=== PATIENT | male | born 1985 | race Caucasian/White ===

== ENCOUNTER 2023-07-09 14:04 | Outpatient (AMB) | payer OTHER, SELFPAY ==
[2023-07-09 14:06] VITALS: BP 130/70; PULSE 71; O2SAT 98; BMI 31.7
--- NOTE | 2023-07-09 14:06 | A.OFFPC_ITS ---
Vital Signs 07/09/23 14:06 Height 5 ft 9 in Weight 215 lb BMI 31.7 BP 130/70 Blood Pressure Location Lt brachial Pulse 71 Pulse Source Pulse Oximeter Pulse Oximetry (%) 98 Oxygen Delivery Method Room Air Intake Visit Reasons: CPE Intake Note: Patient is here for a physical. Allergies No Known Allergies [No Known Allergies*] Allergy (Verified 07/09/23 14:09) Tobacco use date assessed: 07/09/23 Dental Screening Dental Screen Date: 07/09/23 Did you have a dental visit in the last 12 months?: No Did you have a dental problem in the last 6 months where you did not have access to dental care?: No Was dental information given to patient?: Patient declined HPI CPE HPI Details 38 y/o male presents for a CPE with f/u labs and health maintenance. No recent labs to review. Blood pressure today 130/70. He reports he has not been taking any blood pressure meds. He had been concerned lisinopril had been affecting his testosterone levels so had switched this to hydrochlorothiazide but he has not trialed HCTZ yet. Pt reports some chest pain/discomfort - focal L upper chest. Pt reports pain lasts a few minutes to an hour. HPI Comments History of Present Illness Details Documentation assistance for Deric Park MD, was provided by Fish Ferrell, Slots Manager on 07/09/2023 2:34 PM BERTIN. I, Dr. Park, have read, observed, and verified documentation. [facility] Medical History (Updated 07/09/23 @ 14:35 by Fish Ferrell) History of drug abuse Family History (Updated 07/09/23 @ 14:14 by Yuliana Lyons [facility]) Mother Substance abuse Mental health disorder Father Substance abuse Maternal Grandmother Substance abuse Brother Substance abuse Mental health disorder Social History Housing: House Patient Tobacco Use Status: Never used Tobacco e-Cigarette/Vaping Use: Never Used service: No Current occupational status: employed Current occupational exposures/hazards: No Cognitive needs: No Hearing needs: No Vision needs: No Questionnaire PHQ-9 Over the last 2 weeks, how often have you been bothered by any of the following problems? 1. Little interest or pleasure in doing things: not at all 2. Feeling down, depressed, or hopeless: not at all 3. Trouble falling or staying asleep, or sleeping too much: not at all 4. Feeling tired or having little energy: not at all 5. Poor appetite or overeating: not at all 6. Feeling bad about yourself - or that you are a failure or have let yourself or your family down: not at all 7. Trouble concentrating on things, such as reading the newspaper or watching television: not at all 8. Moving or speaking so slowly that other people could have noticed. Or the opposite - being so fidgety or restless that you have been moving around a lot more than usual: not at all 9. Thoughts that you would be better off or of hurting yourself in some way: not at all Total score: 0 Depression Screening Interpretation: Negative Depression Screening Done: Yes 13332 - PHQ-9 Billing: Yes Source: Developed by Drs. Homero Shepard, Rosaura Hernandez, Edilberto Shane and colleagues, with an educational josephine from [employer]™. Thrive Questionnaire Date Thrive assessed: 07/09/23 I am a: Patient What is your living situation today?: I have a steady place to live Within the past 12 months, did the food you bought not last and you didn't have the money to get more?: Never true Within the past 12 months, did you worry whether your food would run out before you got money to buy more?: Never true Do you have trouble paying for medicines?: No Do you have trouble getting transportation to medical appointments?: No Do you have trouble paying your heating and electricity bill?: No Do you have trouble taking care of your child, family member or friend?: No Do you have trouble with day-to-day activities such as bathing, preparing meals, shopping, managing finances, etc.?: No Are you currently unemployed and looking for a job?: No Are you interested in more education?: No THRIVE Score: 0 AUDIT C Alcohol Use Questionnaire (AUDIT-C) 1. How often do you have a drink containing alcohol?: Never 3. How often do you have six or more drinks on one occasion?: Never Total Score: 0 ALLIE-7 AMB Questionnaire ALLIE-7 Date ALLIE - 7 assessed: 07/09/23 Feeling nervous, anxious, or on edge: 0 = Not at all Not being able to stop or control worryin = Not at all Worrying too much about different things: 0 = Not at all Trouble relaxin = Not at all Being so restless that it is hard to sit still: 0 = Not at all Becoming easily annoyed or irritable: 0 = Not at all Feeling afraid as if something awful might happen: 0 = Not at all Total ALLIE-7 score (0-4 normal; 5-9 mild; 10-14 moderate; 15-21 severe): 0 Source: Developed by Drs. Homero Shepard, Rosaura Hernandez, Edilberto Shane and colleagues, with an educational josephine from [employer]™. ALLIE-7 Assessment Billing ALLIE-7 Assessment Tool: ALLIE-7 Assessment 75130 Review of Systems Const Denies chills, Denies fatigue, Denies fever(s), Denies headache(s) and Denies weakness Eyes Denies change in vision ENT Denies dizziness, Denies headache(s), Denies hearing loss, Denies nasal congestion, Denies sinus pain, Denies sinus pressure and Denies sore throat Card Reports chest pain, Denies lightheadedness, Denies dyspnea and Denies other (palpitations) Resp Denies cough, Denies dyspnea and Denies wheezing GI Denies abdominal pain, Denies melena, Denies hematochezia, Denies change in bowel habits, Denies dyspepsia and Denies nausea Denies hematuria and Denies dysuria Musc Denies abnormal gait, Denies myalgias, Denies arthralgias, Denies numbness and Denies tingling Skin/Breast Denies rash, Denies unusual bruising and Denies wounds Neuro Denies abnormal gait, Denies dizziness, Denies headache(s), Denies memory loss, Denies numbness, Denies Sensory deficit (Neuro), Denies tingling and Denies weakness Psych Denies anxiety, Denies depression and Denies memory loss Endo Denies cold intolerance, Denies fatigue, Denies heat intolerance, Denies polydipsia and Denies polyuria Juan Francisco/Lymph Denies easy bleeding and Denies easy bruising Aller/Immun Denies wheezing Physical exam (Primary Care) Vital Signs: Last Vital Signs Pulse 71 07/09/23 14:06 BP 130/70 07/09/23 14:06 Pulse Ox 98 07/09/23 14:06 Oxygen Delivery Method Room Air 07/09/23 14:06 BMI result Body Mass Index 31.7 Tobacco/Smoking Status: Tobacco use Status Tobacco use date assessed 07/09/23 07/09/23 14:20 Patient Tobacco Use Status Never used Tobacco 07/09/23 14:20 e-Cigarette/Vaping Use Never Used 07/09/23 14:20 PHQ-9: PHQ-9 Score PHQ-9: Total score 0 07/09/23 14:22 Depression Screening Interpretation: Negative Thrive Assessment: Date of Thrive Assessment Date Thrive assessed 07/09/23 07/09/23 14:20 Const General: no acute distress, well developed, alert and awake Nutritional Appearance: well nourished Orientation/consciousness: patient oriented x3 HENMT Head: Yes normocephalic and Yes atraumatic Ears: hearing grossly normal bilaterally and TM's normal bilaterally General nose exam: Normal external nose present and Normal nares present Mouth: Normal oral and palatal mucosa present and moist mucous membranes Teeth and gingiva: dentition normal Throat: Yes posterior oropharynx normal Eyes General: appearance normal, both eyes and all related structures Pupils: Equal, round and reactive pupils present and Pupil accommodation reflex normal EOM: EOMs intact bilaterally Neck Neck: Yes normal visual inspection, Yes no lymphadenopathy and Yes trachea midline Thyroid: Thyroid normal Carotids: no bruits Lymphatic: no lymphadenopathy noted Chest Chest palpation & inspection: normal inspection of the chest Resp Effort & Inspection: normal respiratory effort Auscultation: clear to auscultation bilaterally Cardio Rate: regular rate Rhythm: regular rhythm Heart sounds: S1 normal heart sound present, S2 normal heart sound present, no gallops, no murmurs and no rubs Bruits: no abdominal aortic bruits and no carotid bruits GI Palpation (GI): No Abdominal aortic bruit present, Soft to palpation, nontender, No hepatosplenomegaly present and No Rebound tenderness present Auscultation: normal bowel sounds General: Yes no CVA tenderness Back/Spine/Pelvis Back: no CVA tenderness Cervical Spine: cervical ROM normal and No Cervical spine tenderness Thoracic/Lumbar Spine: thoraco-lumbar ROM normal, No pain with thoraco-lumbar ROM, No thoracic spinal tenderness and No lumbar spinal tenderness Skin Lesions: no lesions Rashes: no rashes Trauma: no lacerations or abrasions Wounds: no wounds Nails: normal Neuro General: patient oriented x3 Cranial nerves: Yes Equal, round and reactive pupils present Cognition (Neuro): normal cognition Gait exam (Neuro): Normal gait present Motor exam (neuro): 5/5 motor strength present throughout Sensory Exam: No Sensory deficit (Neuro) Deep tendon reflexes (DTR's): Right patellar reflex intensity grade: 2+ and Left patellar reflex intensity grade: 2+ Extrem General: Yes normal to inspection and No edema Psych Appearance: grossly normal Affect: normal affect Attitude: cooperative Thought process: Normal thought process present Assessment and Plan Assessment & Plan (1) Adult general medical exam: Code(s): Z00.00 - Encounter for general adult medical examination without abnormal findings Plan: 38-year-old?male?presents?for?complete?physical?exam Encouraged?healthy?diet?with?active?lifestyle?and?plenty?of?exercise (2) Chest pain: Code(s): R07.9 - Chest pain, unspecified Plan: 38-year-old?male?with?history?of?hypertension?has?complaint?of?focal?left?upper? chest?pain. Last?a?few?minutes?to?an?hour. EKG: ?Normal?sinus?rhythm,?normal?axis,?normal?intervals,?no?hypertrophy,?no?ST-T-wav e?changes. No?evidence?of?cardiac?disease. This?is?likely?chest?wall?pain. Can?use?gentle?stretching?of?pectoralis?muscles Will?check?chest?x-ray (3) Hypertension: Code(s): I10 - Essential (primary) hypertension Plan: Patient?has?not?been?taking?any?blood?pressure?medication?and?his?blood?pressure ?is?130/70 Encouraged?lifestyle?changes He?will?keep?a?log?of?his?blood?pressures?at?home Will?follow- up?at?next?office?visit?and?if?blood?pressures?are?elevated?in?hypertensive?rang e, can?resume?antihypertensive?medication (4) Screening for prostate cancer: Code(s): Z12.5 - Encounter for screening for malignant neoplasm of prostate Plan: Check?PSA Orders: Orders Comprehensive [place]. Panel Fast Today Z00.00 - Encounter for general adult medical examination without abnormal findings Lipid Panel Today Z00.00 - Encounter for general adult medical examination without abnormal findings Microalbumin, Random (w Creat) Today I10 - Essential (primary) hypertension TSH reflex Free T4 Today Z00.00 - Encounter for general adult medical examination without abnormal findings XR chest 2V Today R07.9 - Chest pain, unspecified Prostate Specific Antigen Scr Today Z12.5 - Encounter for screening for malignant neoplasm of prostate UA and rflx microscopic Today Z00.00 - Encounter for general adult medical examination without abnormal findings AMB EKG-In Office Today R07.9 - Chest pain, unspecified Complete Blood Count Auto Diff Today R07.9 - Chest pain, unspecified, Z00.00 - Encounter for general adult medical examination without abnormal findings Medications: Discontinued hydrochlorothiazide Discontinued Reason: Doctor's Order 50 mg PO QAM 30 days 30 tabs 1RF Coding Level of Care Code Est Pt Level 3 (96185) Est Pt Prev Care 40-64y(05372) Diagnoses Adult general medical exam Z00.00 Chest pain R07.9 Hypertension I10 Screening for prostate cancer Z12.5 Additional Codes ALLIE-7 Assessment Billing - ALLIE-7 Assessment Tool: ALLIE-7 Assessment 90107 ([id number])
== END 2023-07-09 14:54 | disposition home or self-care (01) ==
PROVIDERS: PCP Family Medicine; Visit Provider Family Medicine
DX: Z00.00 Encounter for general adult medical examination without abnormal findings (principal); R07.9 Chest pain, unspecified; I10 Essential (primary) hypertension; Z12.5 Encounter for screening for malignant neoplasm of prostate
CPT/HCPCS: 93000; 99213; 99396

== ENCOUNTER 2023-07-26 08:01 | Outpatient (REF) | payer OTHER, SELFPAY ==
[2023-07-26 11:40] LABS: MANUAL DIFF FLAG NO
[2023-07-26 11:40] LABS: Appearance Urine Clear; Color Urine Yellow; Glucose Urine UA Negative (Negative); Leukocyte Esterase Urine Negative (Negative); Nitrite Urine Negative (Negative); Specific Gravity - Urine 1.015 (1.005-1.025); Urine Blood Negative (Negative); Urine Ketones Negative (Negative); Urine Protein Negative (Neg-Trace)
[2023-07-26 11:46] LABS: Basophils Percent Auto 0.2 % (0-2); Eosinophils Absolute Auto 0.2 X10*3/uL (0.0-0.4); Hematocrit 48.6 % (42.0-52.0); Imm Gran Abs Auto 0.01 X10*3/uL (0.00-0.03); Imm Gran Pct Auto 0.2 % (0.0-0.4); Lymphocytes Absolute Auto 2.5 X10*3/uL (1.2-4.9); Lymphocytes Percent Auto 42.1 % (20-40); Mean Corpuscular HGB Conc 32.9 g/dl (31.0-36.0); Mean Corpuscular Hemoglobin 29.3 pg (27.0-33.0); Mean Platelet Volume 10.6 fL (9.4-12.4); Monocytes Absolute Auto 0.5 X10*3/uL (0.1-1.2); Monocytes Percent Auto 8.3 % (2-11); Neutrophils Absolute Auto 2.8 x10*3/uL (2.0-8.3); Neutrophils Percent Auto 46.2 % (45-73); Platelet Count 300 X10*3/uL (160-400); Red Blood Count 5.46 X10*6/uL (4.60-5.80); Red Cell Distribution Width 13.2 % (11.0-16.0)
[2023-07-26 12:18] LABS: Creatinine Urine 54.57 mg/dL; Microalbumin Urine < 5.0 mg/L
[2023-07-26 12:44] LABS: Prostate Specific Antigen Scr 1.17 ng/mL (<0.05-4.0)
[2023-07-26 12:47] LABS: Alanine Aminotransferase 58 U/L (0-40); Albumin Level 4.9 g/dL (3.5-5.0); Alkaline Phosphatase 106 U/L (39-117); Anion Gap 13 (12-20); Aspartate Amino Transferase 37 U/L (5-37); Bilirubin Total 0.4 mg/dL (0.0-1.0); Blood Urea Nitrogen 16 mg/dL (9-16); Calcium 10.2 mg/dL (8.4-10.2); Carbon Dioxide 28 mmol/L (22-29); Chloride 102 mmol/L (96-108); Cholesterol 209 mg/dL (<200); Estimated Glomerular Filt Rate > 60; Glucose Fasting 83 mg/dL (60-99); HDL Cholesterol 56 mg/dL (>40); LDL Cholesterol Calculated 139 mg/dL (<100); Potassium 4.2 mmol/L (3.3-5.1); Sodium 139 mmol/L (135-145); TSH reflex Free T4 4.53 uIU/mL (0.32-4.0); Total Protein 8.7 g/dL (6.5-8.0); Triglycerides 71 mg/dL (<150)
[2023-07-26 13:17] LABS: Free T4 (Free Thyroxine) 0.97 ng/dL (0.71-1.85)
== END 2023-07-26 08:02 | disposition home or self-care (01) ==
LOC: HO.WFDLDS 08:01
PROVIDERS: Visit Provider Family Medicine
DX: Z00.00 Encounter for general adult medical examination without abnormal findings (principal); Z12.5 Encounter for screening for malignant neoplasm of prostate; R07.9 Chest pain, unspecified; I10 Essential (primary) hypertension
CPT/HCPCS: 36415; 80053; 80061; 81003; 82043; 82570; 84153; 84439; 84443; 85025

== ENCOUNTER → 2023-07-31 14:54 | Outpatient (AMB) | payer OTHER, SELFPAY ==
--- NOTE | 2023-07-31 14:47 | A.OFFPC_ITS ---
Intake Visit Reasons: F/U Labs Intake Note: Patient is scheduled today to follow up on labs. Allergies No Known Allergies [No Known Allergies*] Allergy (Verified 07/31/23 14:47) Tobacco use date assessed: 07/31/23 Dental Screening Dental Screen Date: 07/09/23 HPI F/U Labs HPI Details 38 y/o male presents to review labs and chest x-ray due to chest wall pain. Labs were drawn 07/26/23. Reviewed labs with pt. Elevated ALT of 58. TC 209. LDL 139. HDL 56. Elevated TSH of 4.53. No chest x-ray yet. Pt notes pain is no longer bothering him. PFS Medical History History of drug abuse Family History Mother Substance abuse Mental health disorder Father Substance abuse Maternal Grandmother Substance abuse Brother Substance abuse Mental health disorder Social History Housing: House Patient Tobacco Use Status: Never used Tobacco e-Cigarette/Vaping Use: Never Used service: No Current occupational status: employed Current occupational exposures/hazards: No Cognitive needs: No Hearing needs: No Vision needs: No Questionnaire Thrive Questionnaire Date Thrive assessed: 07/09/23 ALLIE-7 AMB Questionnaire ALLIE-7 Date ALLIE - 7 assessed: 07/09/23 Source: Developed by Drs. Homero Shepard, Rosaura Hernandez, Edilberto Shane and colleagues, with an educational josephine from [employer]. Review of Systems Const Denies chills, Denies fatigue, Denies fever(s), Denies headache(s) and Denies weakness ENT Denies dizziness and Denies headache(s) Card Denies dyspnea Resp Denies cough, Denies dyspnea, Denies wheezing and Denies other (shortness of breath) Musc Denies numbness and Denies tingling Neuro Denies dizziness, Denies headache(s), Denies numbness, Denies tingling and Denies weakness Psych Denies anxiety and Denies depression Endo Denies fatigue Aller/Immun Denies wheezing Physical exam (Primary Care) Tobacco/Smoking Status: Tobacco use Status Tobacco use date assessed 07/31/23 07/31/23 14:49 Patient Tobacco Use Status Never used Tobacco 07/31/23 14:49 e-Cigarette/Vaping Use Never Used 07/31/23 14:49 Thrive Assessment: Date of Thrive Assessment Date Thrive assessed 07/09/23 07/31/23 14:49 Telehealth Telehealth Telehealth Platform: Telephone Location of provider rendering services: practice address Location of patient: address on file Patient Identification confirmed using: Name, : Yes Telehealth method: voice only Patient verbally consented to treatment: Yes Patient verbally consented to billing insurance company: Yes Patient informed of any privacy concerns related to visit: Yes Assessment and Plan Assessment & Plan (1) Chest pain: Code(s): R07.9 - Chest pain, unspecified Plan: Focal?upper?left?chest?wall?pain This?resolved.??Patient?did?not?get?chest?x-ray He?will?let?me?know?if?pain?returns (2) Elevated liver enzymes: Code(s): R74.8 - Abnormal levels of other serum enzymes Plan: History?of?elevated Liver?enzymes. Patient?also?has?a?history?of?alcohol?abuse?though?he?is?abstinent?now Also?overweight?and?has?use?frequent?Tylenol Advised?him?to?work?on?some?weight?loss?and?good?hydration.??Avoid?alcohol?or?Ty lenol Will?get?an?ultrasound?of?his?liver Will?repeat?liver?enzymes?prior?to?his?next?visit (3) Hypercholesterolemia: Code(s): E78.00 - Pure hypercholesterolemia, unspecified Plan: Mildly?elevated?LDL?cholesterol Patient?work?on?a?diet?lower?in?saturated?fats?and?cholesterol?and?weight?loss Recheck?prior?to?next?visit (4) Elevated TSH: Code(s): R79.89 - Other specified abnormal findings of blood chemistry Plan: Mildly?elevated?TSH Patient?had?had?a?severe?oral?infection Recheck?thyroid?hormone?level Plan Also?some?complaints?of?fatigue?and?I?ordered?a?testosterone?level?at?patient's? request Orders: Orders Testosterone, Free/Total Today R53.83 - Other fatigue Thyroid Stimulating Hormone Today E03.9 - Hypothyroidism, unspecified, R79.89 - Other specified abnormal findings of blood chemistry Triiodothyronine T3 Total Today E03.9 - Hypothyroidism, unspecified, R79.89 - Other specified abnormal findings of blood chemistry US abdomen smallwood w elastography Today R74.8 - Abnormal levels of other serum enzymes Free T4 (Free Thyroxine) Today E03.9 - Hypothyroidism, unspecified, R79.89 - Other specified abnormal findings of blood chemistry Lipid Panel Today E78.00 - Pure hypercholesterolemia, unspecified, Z00.00 - Encounter for general adult medical examination without abnormal findings Comprehensive [place]. Panel Fast Today R74.8 - Abnormal levels of other serum enzymes, Z00.00 - Encounter for general adult medical examination without abnormal findings Coding Level of Care Code Tele Est Pt Level 2 (43816) Diagnoses Chest pain R07.9 Elevated liver enzymes R74.8 Hypercholesterolemia E78.00 Elevated TSH R79.89
== END ==
LOC: HO.HMGFM 14:54
PROVIDERS: PCP Family Medicine; Visit Provider Family Medicine
DX: R74.8 Abnormal levels of other serum enzymes (principal); E78.00 Pure hypercholesterolemia, unspecified; R79.89 Other specified abnormal findings of blood chemistry
CPT/HCPCS: 99212

== ENCOUNTER 2023-08-15 09:22 | Outpatient (REF) | payer OTHER, SELFPAY ==
--- NOTE | ~2023-08-15 | US_ITS ---
EXAMINATION: US ABDOMEN LIMITED WITH LIVER ELASTOGRAPHY CLINICAL INFORMATION: Abnormal serum enzymes. COMPARISON: None available. TECHNIQUE: Real-time imaging of the abdominal viscera. Noninvasive ultrasound liver fibrosis assessment is performed using Mary ElastPQ point quantification shear wave elastography (2D-SWE) with a C5-2 MHz transducer. Multiple elastography samples are obtained. FINDINGS: PANCREAS: Largely obscured by overlapping bowel gas. LIVER: The liver is borderline enlarged and shows normal contour and increased echogenicity. No focal lesion or intrahepatic biliary duct dilatation. The right lobe measures 17.0 cm in length. The left lobe measures 10.0 cm in length. Portal flow is towards the liver (hepatopetal). Shear wave liver elastography median stiffness is 1.69 m/s (reference: normal median stiffness is 1.3 m/s or less). IQR/median stiffness to assess sampling precision is 0.15 (reference: good quality data set is IQR/median stiffness of 0.15 or less). GALLBLADDER: Normal. The gallbladder is physiologically distended without evidence of stones, sludge, polyps, wall thickening or pericholecystic fluid. COMMON BILE DUCT: Normal in caliber measuring 0.2 cm in diameter. RIGHT KIDNEY: Normal. No hydronephrosis. No renal calculi or focal parenchymal lesions. The kidney measures 11.1 cm in maximum dimension. FREE FLUID: None. US/US abdomen smallwood w elastography IMPRESSION: 1. There is generalized increase in hepatic echotexture, consistent with fatty infiltration or hepatocellular disease. Please correlate clinically. No focal hepatic mass or intrahepatic biliary dilatation is seen. 2. There is borderline hepatomegaly. 3. Liver elastography: In the absence of other known clinical signs, measurements rule out compensated advanced chronic liver disease. If there are known clinical signs, further testing may be needed for confirmation. 4. Technically limited ultrasound examination of the pancreas. REFERENCE: Society of Radiologists in Ultrasound Liver Stiffness Thresholds (2020): LIVER STIFFNESS THRESHOLDS: *Liver Stiffness equal or less than 1.3 m/s: High probability of being normal. *Liver Stiffness less than 1.7 m/s: In the absence of other known clinical signs, rules out compensated advanced chronic liver disease. *Liver Stiffness 1.7-2.1 m/s: Suggestive of compensated advanced chronic liver disease but need further test for confirmation. *Liver Stiffness over 2.1 m/s: Rules in compensated advanced chronic liver disease. *Liver Stiffness over 2.4 m/s: Suggestive of clinically significant portal hypertension. QUALITY OF DATA SET: *IQR/Median value equal or less than 0.15 implies a quality data set. *IQR/Median value over 0.15 implies a poor quality data set. SIGNIFICANT CHANGE FROM PRIOR EXAM: Significant change if liver stiffness measurement is 10% or greater from prior exam. OTHER CONSIDERATIONS: The stage of liver fibrosis may be overestimated in the setting of acute hepatitis, liver inflammation, elevated liver function tests, hepatic vascular congestion, obstructive cholestasis, non-fasting state, and infiltrative diseases such as amyloidosis and lymphoma. In some patients with NAFLD, the liver stiffness thresholds for compensated advanced chronic liver disease may be lower. In causes other than viral hepatitis and NAFLD, liver stiffness thresholds are not well established.
== END 2023-08-15 09:23 | disposition home or self-care (01) ==
LOC: HO.US 09:22
PROVIDERS: PCP Family Medicine; Visit Provider Family Medicine
DX: R74.8 Abnormal levels of other serum enzymes (principal)
CPT/HCPCS: 76705; 76981

== ENCOUNTER 2023-09-26 08:12 | Outpatient (AMB) | payer OTHER, SELFPAY ==
[2023-09-26 08:18] VITALS: BP 140/80; PULSE 83; TEMP 36.7; O2SAT 98; BMI 32.4
--- NOTE | 2023-09-26 08:18 | AM.OFFWIN_ITS ---
Intake Vital Signs 09/26/23 08:18 Height 5 ft 9 in Weight 219 lb 2 oz BMI 32.4 BP 140/80 H Blood Pressure Location Rt brachial Position Sitting Pulse 83 Pulse Source Pulse Oximeter Temp 98.1 F Temp Source Temporal Artery Scan Pulse Oximetry (%) 98 Intake Visit Reasons: EP ?Pinched nerve - back - 2 weeks Intake Note: pt is here for pinched nerve, back pain 2 weeks ago Patient Tobacco Use Status: Never used Tobacco Allergies No Known Allergies [No Known Allergies*] Allergy (Verified 09/26/23 08:19) Do you need a note to return to daycare/school/sports/work: No HPI HPI Comments History of Present Illness Details 38 y/o male patient who presents to walk in clinic with c/o Lower back pain x 2 weeks. Two weeks ago he lifted something heavy at the Gym. Denies bowel or bladder symptoms. He does have prior h/o chronic lower back pain and he currently sees Chiro x 3 a day. Denies back surgeries. [facility] Medical History History of drug abuse Family History Mother Substance abuse Mental health disorder Father Substance abuse Maternal Grandmother Substance abuse Brother Substance abuse Mental health disorder Social History Housing: House Patient Tobacco Use Status: Never used Tobacco e-Cigarette/Vaping Use: Never Used service: No Current occupational status: employed Current occupational exposures/hazards: No Cognitive needs: No Hearing needs: No Vision needs: No Review of Systems Const All systems reviewed & are unremarkable except as noted in HPI and below Physical Exam Vital Signs: Last Vital Signs Temp 98.1 F 09/26/23 08:18 Pulse 83 09/26/23 08:18 BP 140/80 H 09/26/23 08:18 Pulse Ox 98 09/26/23 08:18 BMI result Body Mass Index 32.4 Const General: no acute distress Nutritional Appearance: obese Orientation/consciousness: patient oriented x3 Back/Spine/Pelvis Back: back tenderness Thoracic/Lumbar Spine: thoraco-lumbar ROM normal, thoracic spinal tenderness at T11 and at T12 and lumbar spinal tenderness at L4 and at L5 Sacrum: tenderness on the right Coccyx: Coccyx tenderness present on direct palpation Neuro General: patient oriented x3, gait normal and moves all extremities Psych Speech and movement: Normal speech and movement present Assessment & Plan Assessment & Plan (1) Chronic lower back pain: Code(s): M54.50 - Low back pain, unspecified; G89.29 - Other chronic pain Qualifiers: Back pain laterality: right Sciatica laterality: sciatica of right side Sciatica presence: with sciatica Qualified Code(s): M54.41 - Lumbago with sciatica, right side; G89.29 - Other chronic pain Plan: Ice/Hot Acetaminophen Alt with Ibuprofen F/U with PCP as scheduled. Continue with Chiro as scheduled Medications: New acetaminophen 1,000 mg (2 x 500 mg) PO Q6H PRN 30 caps 0RF pain G89.29 - Other chronic pain, M54.41 - Lumbago with sciatica, right side cyclobenzaprine 10 mg PO BEDTIME 7 tabs 0RF G89.29 - Other chronic pain, M54.41 - Lumbago with sciatica, right side gabapentin 100 mg PO BID 30 caps 0RF G89.29 - Other chronic pain, M54.41 - Lumbago with sciatica, right side ibuprofen 800 mg PO Q8H 30 tabs 0RF G89.29 - Other chronic pain, M54.41 - Lumbago with sciatica, right side Coding Level of Care Code Est Pt Level 3 (56925) Diagnoses Chronic right-sided low back pain with right-sided sciatica M54.41; G89.29 Back pain laterality: right Sciatica laterality: sciatica of right side Sciatica presence: with sciatica Time Spent (min) 15
== END 2023-09-26 09:02 | disposition home or self-care (01) ==
PROVIDERS: PCP Family Medicine; Visit Provider Nurse Practitioner Family
DX: M54.41 Lumbago with sciatica, right side (principal); G89.29 Other chronic pain
CPT/HCPCS: 99213

== ENCOUNTER 2023-10-02 15:43 | Outpatient (AMB) | payer OTHER, SELFPAY ==
--- NOTE | 2023-10-02 15:52 | MHC.PC.OV ---
Vital Signs 10/02/23 15:53 Height 5 ft 9 in Weight 215 lb 8 oz BMI 31.8 BP 155/70 H Blood Pressure Location Rt brachial Position Sitting Respiration 14 Pulse 113 H Pulse Source Pulse Oximeter Temp 97.8 F Temp Source Temporal Artery Scan Pulse Oximetry (%) 99 Oxygen Delivery Method Room Air Intake Visit Reasons: f/u BP Intake Note: Patient states that his BP is high due to his Sciatic nerve giving him troubles. Patient is requesting a MRI if there is tijme. Patient would like refill on Cyclobenzaprine. 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 Also f/u elev. liver enzymes and mildly elevated lipids. Pt had mild fatigue and I ordered a testosterone level. No recent labs to review. Blood pressure today 155/70, 113p. Pt reports sciatica today and states blood pressure is high due to pain. 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 Homero Shepard, Rosaura Hernandez, Edilberto Shane and colleagues, with an educational josephine from [employer]. Review of Systems Const Denies chills, Denies fatigue, Denies fever(s), Denies headache(s) and Denies weakness ENT Denies dizziness and Denies headache(s) Card Denies dyspnea Resp Denies cough, Denies dyspnea, Denies wheezing and Denies other (shortness of breath) Musc Reports back pain, Denies numbness and Denies tingling Neuro Denies dizziness, Denies headache(s), Denies numbness, Denies tingling and Denies weakness Psych Denies anxiety and Denies depression Endo Denies fatigue Aller/Immun Denies wheezing Physical exam (Primary Care) Vital Signs: Last Vital Signs Temp 97.8 F 10/02/23 15:53 Pulse 113 H 10/02/23 15:53 Resp 14 10/02/23 15:53 BP 155/70 H 10/02/23 15:53 Pulse Ox 99 10/02/23 15:53 Oxygen Delivery Method Room Air 10/02/23 15:53 BMI result Body Mass Index 31.8 Tobacco/Smoking Status: Tobacco use Status Tobacco use date assessed 07/31/23 10/02/23 15:56 Patient Tobacco Use Status Never used Tobacco 10/02/23 15:56 e-Cigarette/Vaping Use Never Used 10/02/23 15:56 Thrive Assessment: Date of Thrive Assessment Date Thrive assessed 07/09/23 10/02/23 15:56 Const General: well developed; No acute distress Nutritional Appearance: well nourished Orientation/consciousness: patient oriented x3 HENMT Head: Yes normocephalic and Yes atraumatic Eyes General: appearance normal, both eyes and all related structures Pupils: Equal, round and reactive pupils present EOM: EOMs intact bilaterally Resp Effort & Inspection: normal respiratory effort Neuro General: patient oriented x3 and gait normal Cranial nerves: Yes Equal, round and reactive pupils present Psych Affect: normal affect Assessment and Plan Assessment & Plan (1) Hypertension: Code(s): I10 - Essential (primary) hypertension Plan: Blood?pressure?is?too?high.??He?had?been?on?lisinopril?and?also?hydrochlorothiazide?in?the?past. Will?resume?lisinopril?and?follow-up?in?1?month (2) Fatigue: Code(s): R53.83 - Other fatigue Plan: Labs?were?ordered?but?patient?has?not?had?these?drawn?yet. He?will?get?them?drawn?prior?to?next?visit?in?about?a?month (3) Back pain: Code(s): M54.9 - Dorsalgia, unspecified Plan: Low?back?pain/sciatica Resume?cyclobenzaprine?for?another?10?days.??Continue?NSAIDs?for?anti?inflammation Ice/heat Start?physical?therapy If?not?improving?would?consider?imaging (4) Sciatica: Code(s): M54.30 - Sciatica, unspecified side Plan: As?above Orders: Orders PT Evaluation and Treatment Today M54.30 - Sciatica, unspecified side Medications: Changed From cyclobenzaprine 10 mg PO BEDTIME 7 tabs 0RF G89.29 - Other chronic pain, M54.41 - Lumbago with sciatica, right side To cyclobenzaprine 10 mg PO BEDTIME 10 days 10 tabs 0RF G89.29 - Other chronic pain, M54.41 - Lumbago with sciatica, right side From lisinopril 20 mg PO DAILY To lisinopril 20 mg PO DAILY 90 days 90 tabs 2RF Coding Level of Care Code Est Pt Level 4 (14556) Diagnoses Hypertension I10 Fatigue R53.83 Back pain M54.9 Sciatica M54.30
[2023-10-02 15:53] VITALS: BP 155/70; PULSE 113; RESP 14; TEMP 36.6; O2SAT 99; BMI 31.8
== END 2023-10-02 16:23 | disposition home or self-care (01) ==
PROVIDERS: PCP Family Medicine; Visit Provider Family Medicine
DX: I10 Essential (primary) hypertension (principal); R53.83 Other fatigue; M54.9 Dorsalgia, unspecified; M54.30 Sciatica, unspecified side
CPT/HCPCS: 99214

== ENCOUNTER 2023-10-28 08:19 | Outpatient (REF) | payer OTHER, SELFPAY ==
[2023-10-28 11:38] LABS: Alanine Aminotransferase 87 U/L (0-40); Albumin Level 4.6 g/dL (3.5-5.0); Alkaline Phosphatase 105 U/L (39-117); Anion Gap 15 (12-20); Aspartate Amino Transferase 42 U/L (5-37); Bilirubin Total 0.5 mg/dL (0.0-1.0); Blood Urea Nitrogen 13 mg/dL (9-16); Carbon Dioxide 26 mmol/L (22-29); Chloride 103 mmol/L (96-108); Cholesterol 193 mg/dL (<200); Estimated Glomerular Filt Rate > 60; Glucose Fasting 101 mg/dL (60-99); HDL Cholesterol 48 mg/dL (>40); LDL Cholesterol Calculated 135 mg/dL (<100); Potassium 4.5 mmol/L (3.3-5.1); Sodium 139 mmol/L (135-145); Total Protein 8.3 g/dL (6.5-8.0); Triglycerides 50 mg/dL (<150)
[2023-10-28 11:41] LABS: Free T4 (Free Thyroxine) 0.86 ng/dL (0.71-1.85); Thyroid Stimulating Hormone 3.29 uIU/mL (0.32-4.0)
[2023-10-29 08:58] LABS: Triiodothyronine T3 Total 119 ng/dL (76-181)
[2023-11-02 22:14] LABS: Testosterone, Free 79.8 pg/mL (35.0-155.0); Testosterone, Total 397 ng/dL (250-1100)
== END 2023-10-28 08:20 | disposition home or self-care (01) ==
LOC: HO.WFDLDS 08:19
PROVIDERS: Visit Provider Family Medicine
DX: Z00.00 Encounter for general adult medical examination without abnormal findings (principal); R53.83 Other fatigue; E03.9 Hypothyroidism, unspecified; R79.89 Other specified abnormal findings of blood chemistry; E78.00 Pure hypercholesterolemia, unspecified; R74.8 Abnormal levels of other serum enzymes
CPT/HCPCS: 36415; 80053; 80061; 84402; 84403; 84439; 84443; 84480

== ENCOUNTER 2023-10-28 08:55 | Emergency (ER) | payer OTHER, SELFPAY ==
--- NOTE | ~2023-10-28 | XR_ITS ---
EXAMINATION: XR LUMBOSACRAL SPINE CLINICAL INFORMATION: Lower back pain. COMPARISON: None available. TECHNIQUE: 3 views of the lumbosacral spine. FINDINGS: Normal vertebral body alignment. No acute fracture or subluxation. The lumbar lordosis is maintained. No loss of vertebral body height. Mild loss of intervertebral disc height with tiny endplate osteophytes at L3-S1. No concerning lytic or blastic osseous lesion. Phleboliths within the pelvis. XR/XR lumbar spine 2-3V IMPRESSION: Mild degenerative disc disease at L3-S1.
[2023-10-28 09:02] VITALS: BP 142/90; PULSE 91; RESP 16; TEMP 36.6; O2SAT 97; BMI 31.0
--- NOTE | 2023-10-28 09:31 | ED_ITS ---
HPI - Back Pain/Injury General Chief Complaint: Back Pain/Injury Stated Complaint: feels need to urinate Time Seen by Provider: 10/28/23 09:08 Source: patient Mode of arrival: ambulatory Limitations: no limitations History of Present Illness ED Provider: Denis Cisneros PA-C HPI Narrative: 38 yo male with history of sciatica, HTN, HLD who presents to the ER for evaluation of ongoing back pain for the last 6 weeks. Patient saw his PCP on October 01 and was ordered cyclobenzaprine and physical therapy. The plan was to obtain imaging if no improvement in his symptoms. Patient has a history of repeat trauma and injury to his lower back, first starting about 2-3 years ago when lifting and noticed severe back pain in which he went to a chiropractor and seemed to fix the problem. 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 Patient again went to chiropractor, but the pain persisted. He most recently went to his PCP about 4 weeks ago due to this pain, where he was prescribed cyclobenzaprine, high dose ibuprofen and physical therapy. States pain is radiating from his right hip and radiating down his leg, and that he is having a difficult time walking long distances or laying flat due to pain. Patient also endorses a new onset numbness, tingling down the right lateral leg occurring in the last 2 weeks. States the there is also a burning and pain shooting down his leg from his hip area. He endorses having bladder symptoms as well, stating that he continues to feel fullness in his bladder, like he has to pee but when he goes to urinate there is no urine. Patient states that he can not stand to pee, and needs to sit down in order to urinate. He denies any saddle anaesthesia, urinary inco ntinence and bowel incontinence. Was recetnyl doing a lot of walking this past weekend and states that the pain was significantly worse. 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 States that when sitting he is fine, however laying flat or standing or dangling his legs over the edge of the bed/chair causes severe pain down his right leg including tingling and burning sensation on the lateral side of his right leg. MD elicited complaint: back pain and back injury Pertinent past history: prior back pain and other (recent injury) Onset (ago): week(s) (6) Timing: intermittent Severity: moderate Quality: burning, dull, aching and tingling Location: lumbar spine and right lower back Radiation: right upper leg and right leg below the knee Exacerbating factors: movement, supine positioning, walking and lifting Relieving factors: medication and sitting upright Context: while lifting, turning/twisting (pain with) and bending Associated symptoms: numbness and increased urinary urgency Treatments prior to arrival: NSAIDS Work related injury: No Related Data Previous Rx's ?Medication ?Instructions ?Recorded acetaminophen 500 mg capsule 1,000 mg (2 x 500 mg) PO Q6H PRN 09/26/23 pain #30 caps gabapentin 100 mg capsule 100 mg PO BID #30 caps 09/26/23 ibuprofen 800 mg tablet 800 mg PO Q8H #30 tabs 09/26/23 cyclobenzaprine 10 mg tablet 10 mg PO BEDTIME 10 days #10 tabs 10/02/23 lisinopril 20 mg tablet 20 mg PO DAILY 90 days #90 tabs 10/02/23 cyclobenzaprine 10 mg tablet 10 mg PO TID PRN muscle spasm #14 10/28/23 tabs prednisone 20 mg tablet 40 mg (2 x 20 mg) PO DAILY #10 tabs 10/28/23 Allergies Allergy/AdvReac Type Severity Reaction Status Date / Time No Known Allergies Allergy Verified 10/28/23 09:06 [No Known Allergies*] Review of Systems Review of Systems: Yes all other systems are reviewed and are negative [facility] Past Medical History Medical History (Updated 10/28/23 @ 10:45 by ANABELLE Mike) History of drug abuse Surgical History No pertinent past surgical history Family History Family History Mother Substance abuse Mental health disorder Father Substance abuse Maternal Grandmother Substance abuse Brother Substance abuse Mental health disorder Social History Social History Housing: House Patient Tobacco Use Status: Never used Tobacco e-Cigarette/Vaping Use: Never Used Advance Directives: No Advance Directives Information Provided: No service: No Current occupational status: employed 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 Oriented X3. No acute distress. HEENT: normal inspection CVS: Normal heart rate and rhythm. Pulses normal. Respiratory: No respiratory distress. Skin: Skin warm and dry. Normal skin color. Normal skin turgor. No rashes. Abdomen: Soft to palpation, no pain or rebound tenderness or guarding. Bladder is no palpable. Extremities: No trauma or injury to extremities noted. MSK: Slight tenderness to right paraspinal muscles, reports shooting sensation down the right lateral leg to the right foot with palpation of right paraspinal muscles and SI joint palpation. Neuro: Oriented X 3. No motor deficit. strength 5/5 bilaterally on legs for hip abduction/adduction, leg extension/flexion and ankle inversion/eversion and extension and flexion. Slight sensory deficit to right lateral leg on palpation, states he can feel the pressure but the sensation is decreased compared to the right side. Burning and electricity feeling down right lateral pain to the entire right foot with lumbar extension and flexion. DTRs intact bilaterally. Medical Decision Making Medical Decision Making MDM Narrative: 38 yo male with history of sciatica, HTN, HLD who presents to the ER for evaluation of ongoing back pain for the last 6 weeks. Patient saw his PCP on October 01 and was ordered cyclobenzaprine and physical therapy. The plan was to obtain imaging if no improvement in his symptoms. Patient is having new onset numbness and tingling down the right lateral side of his right leg/ He does not endorse any urinary or bowel incontinence, and does not endorse saddle anaesthesia. Less likely Cauda Equina. Frequent repeated injury to left lower back makes it more likely a lumbar nerve impingement or muscle strain causing inflammation and pinching of the nerve route L5 to right lateral leg. X-ray was obtained and showed no acute fractures or breaks of any process in vertebral column. Most likely will need MRI to assess for nerve compression/impingement. Physical exam suggests that this is a nerve compression/impingement problem or a muscle strain causing nerve compression due to inflammation. FXR lumbar spine with mild degenerative changes L3-S1. No emergent need for MRI today. No red flag symptoms of LBP. Will give short course of prednisone and continue PRN flexeril QHS. he will f/u with PCP and neuro/spine for further evaluation and treatment. stable for d/c home Differential Diagnosis Differential Diagnoses: The differential diagnosis associated with the presentation includes Cauda Equina, Lumbar nerve impingement, Muscle strain, lumbar radiculopathy, sciatica, BPH Lab Data MDM Lab Attestation statement: I reviewed the patient's lab results. Labs: Lab Results 10/28/23 Range/Units 10:08 Urine Color Yellow Urine Appearance Clear Urine pH 8.5 (5.0-9.0) Ur Specific [place] 1.010 (1.005-1.025) Urine Protein Negative (Neg-Trace) mg/dL Urine Glucose (UA) Negative (Negative) mg/dL Urine Ketones Negative (Negative) mg/dL Urine Blood Negative (Negative) Urine Nitrite Negative (Negative) Ur Leukocyte Esterase Negative (Negative) Independent Interpretation I performed an independent interpretation of an: Plain X-Ray Interpretation: xr lumbar spine without compression fx or subluxation Radiology Impression Discussion of test interpretation with radiology: I have reviewed the radiologist's reading. Radiologist Impression: =EXAMINATION: XR LUMBOSACRAL SPINE CLINICAL INFORMATION: Lower back pain. COMPARISON: None available. TECHNIQUE: 3 views of the lumbosacral spine. FINDINGS: Normal vertebral body alignment. No acute fracture or subluxation. The lumbar lordosis is maintained. No loss of vertebral body height. Mild loss of intervertebral disc height with tiny endplate osteophytes at L3-S1. No concerning lytic or blastic osseous lesion. Phleboliths within the pelvis. XR/XR lumbar spine 2-3V IMPRESSION: Mild degenerative disc disease at L3-S1. External Record Review External record reviewed: Office record, Outpatient record, Prior outpatient labs and Prior outpatient radiology Tests considered The following testing was considered but not selected: MRI considered - low clinical suspicion for cauda equina Prescription Management I considered prescription management with: Pain Medication and Other (prednisone) Chronic Conditions Patient?s care impacted by: Other (back pain) Critical Care Time Critical Care Time Critical Care Time: No Discharge Plan Discharge Clinical Impression: Lumbar radiculopathy Patient Disposition: Home, Self-Care Instructions: Lumbar Radiculopathy (ED), Lower Back Exercises (ED) Additional Instructions: Take the prescribed prednisone for anti-inflammatory effects. Complete the 5 day course. Recommend Tylenol 1000 mg every 6-8 hours as needed for pain. Continue the muscle relaxer at night as needed for sleep. Continue physical therapy. Recommend following up with the commercial credit specialist, name and number below. Call for an appointment. Follow-up with your primary care doctor for further imaging of your spine. X- ray only showed some mild degenerative changes but MRI is a better test. If you develop new or worsening symptoms call 911 or come back to the ER for further evaluation. EXAMINATION: XR LUMBOSACRAL SPINE CLINICAL INFORMATION: Lower back pain. COMPARISON: None available. TECHNIQUE: 3 views of the lumbosacral spine. FINDINGS: Normal vertebral body alignment. No acute fracture or subluxation. The lumbar lordosis is maintained. No loss of vertebral body height. Mild loss of intervertebral disc height with tiny endplate osteophytes at L3-S1. No concerning lytic or blastic osseous lesion. Phleboliths within the pelvis. XR/XR lumbar spine 2-3V IMPRESSION: Mild degenerative disc disease at L3-S1. Prescriptions: New cyclobenzaprine 10 mg tablet 10 mg PO TID PRN (Reason: muscle spasm) Qty: 14 0RF prednisone 20 mg tablet 40 mg PO DAILY Qty: 10 0RF No Action lisinopril 20 mg tablet 20 mg PO DAILY 90 Days Qty: 90 2RF cyclobenzaprine 10 mg tablet 10 mg PO BEDTIME 10 Days Qty: 10 0RF gabapentin 100 mg capsule 100 mg PO BID Qty: 30 0RF ibuprofen 800 mg tablet 800 mg PO Q8H Qty: 30 0RF acetaminophen 500 mg capsule 1,000 mg PO Q6H PRN (Reason: pain) Qty: 30 0RF Referrals: Deric Park MD [Primary Care Provider] - Sid Lira MD, PhD [Physician] - Interventions: ED Discharge Assessment Last Done: 10/28/23 12:07 Discharge Date/Time: 10/28/23 12:10 Print Language: Pashto
[2023-10-28 10:15] LABS: Appearance Urine Clear; Color Urine Yellow; Glucose Urine UA Negative (Negative); Leukocyte Esterase Urine Negative (Negative); Nitrite Urine Negative (Negative); PH 8.5 (5.0-9.0); Urine Blood Negative (Negative); Urine Ketones Negative (Negative); Urine Protein Negative (Neg-Trace)
[2023-10-28 11:21] VITALS: BP 135/85; PULSE 72; RESP 18; TEMP 36.7; O2SAT 97
[2023-10-28 12:07] VITALS: BP 135/85; PULSE 72; RESP 18; TEMP 36.7; O2SAT 97
== END 2023-10-28 12:10 | disposition home or self-care (01) ==
PROVIDERS: Physician Assistant; Emergency Provider Emergency Medicine Emergency Medical Services; PCP Family Medicine
DX: M54.16 Radiculopathy, lumbar region (principal); R20.0 Anesthesia of skin; R33.9 Retention of urine, unspecified; I10 Essential (primary) hypertension; Z79.899 Other long term (current) drug therapy
CPT/HCPCS: 51798; 72100; 81003; 99283; 99284

== ENCOUNTER 2023-11-04 14:37 | Outpatient (AMB) | payer OTHER, SELFPAY ==
--- NOTE | 2023-11-04 14:54 | MHC.PC.OV ---
Vital Signs 11/04/23 14:58 Height 5 ft 9 in Weight 212 lb BMI 31.3 BP 114/60 Blood Pressure Location Lt brachial Position Sitting Respiration 16 Pulse 93 Pulse Source Pulse Oximeter Temp 98 F Temp Source Tympanic Pulse Oximetry (%) 95 Oxygen Delivery Method Room Air Intake Visit Reasons: blood pressure Intake Note: b/p check and lab review pt also states he had a back injury and has moderate back pain was seen in [place] [facility] Allergies No Known Allergies [No Known Allergies*] Allergy (Verified 11/04/23 14:56) Tobacco use date assessed: 07/31/23 Dental Screening Dental Screen Date: 07/09/23 HPI blood pressure HPI Details 38 y/o male presents to f/u hypertension. Blood pressure today 114/60. He is on lisinopril 20mg daily. Has complaints of back pain. He notes he had injured it a couple months ago - had given him cyclobenzaprine, ibuprofen. He notes pain has not resolved. Had been to physical therapy but was recommended to go to the ER. He notes prednisone had significantly improved pain when he had went. HPI Comments History of Present Illness Details Documentation assistance for Deric Park MD, was provided by Fish Ferrell,? Plant Guide on 11/04/2023 at 3:27 PM EST. I, Dr. Park, have read, observed, and verified documentation. 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 Homero Shepard, Rosaura Hernandez, Edilberto Shane and colleagues, with an educational josephine from [employer] Review of Systems Const Denies chills, Denies fatigue, Denies fever(s), Denies headache(s) and Denies weakness ENT Denies dizziness and Denies headache(s) Card Denies chest pain, Denies lightheadedness, Denies dyspnea and Denies other (Palpitations) Resp Denies cough, Denies dyspnea, Denies wheezing and Denies other ( shortness of breath) Musc Reports back pain, Denies numbness and Denies tingling Neuro Denies dizziness, Denies headache(s), Denies numbness, Denies tingling, Denies paresthesias and Denies weakness Psych Denies anxiety and Denies depression Endo Denies fatigue Aller/Immun Denies wheezing Physical exam (Primary Care) Vital Signs: Last Vital Signs Temp 98 F 11/04/23 14:58 Pulse 93 11/04/23 14:58 Resp 16 11/04/23 14:58 BP 114/60 11/04/23 14:58 Pulse Ox 95 11/04/23 14:58 Oxygen Delivery Method Room Air 11/04/23 14:58 BMI result Body Mass Index 31.3 Tobacco/Smoking Status: Tobacco use Status Tobacco use date assessed 07/31/23 11/04/23 15:01 Patient Tobacco Use Status Never used Tobacco 11/04/23 15:01 e-Cigarette/Vaping Use Never Used 11/04/23 15:01 Thrive Assessment: Date of Thrive Assessment Date Thrive assessed 07/09/23 11/04/23 15:01 Const General: no acute distress and well developed Nutritional Appearance: well nourished Orientation/consciousness: patient oriented x3 HENMT Head: Yes normocephalic and Yes atraumatic Eyes General: appearance normal, both eyes and all related structures Pupils: Equal, round and reactive pupils present EOM: EOMs intact bilaterally Resp Effort & Inspection: normal respiratory effort Auscultation: clear to auscultation bilaterally Cardio Rate: regular rate Rhythm: regular rhythm Heart sounds: S1 normal heart sound present, S2 normal heart sound present, no gallops, no murmurs and no rubs Neuro General: patient oriented x3 and gait normal Cranial nerves: Yes Equal, round and reactive pupils present Psych Affect: normal affect Assessment and Plan Assessment & Plan (1) Hypertension: Code(s): I10 - Essential (primary) hypertension Plan: Blood?pressure?is?controlled.??Goal?is?less?than?140/90 Continue?current?medication (2) Back pain: Code(s): M54.9 - Dorsalgia, unspecified Plan: Ongoing?low?back?pain?for?6+ weeks. Has?not?improved?with?conservative?care?and?medications.??Has?been?undergoing?physical?therapy?but?still?having?back?pain. Did?improve?with?steroid?treatment?but?pain?is?returning. Check?MRI Referred?to?pain?management May?continue?physical?therapy May?need?referral?to?Dr Lira?if?not?improving or?if?warranted?by?MRI (3) Elevated liver enzymes: Code(s): R74.8 - Abnormal levels of other serum enzymes Plan: Elevated?liver?enzymes?with?elevated?elastography Checking?hepatitis?panel Ultrasound?shows?fatty?liver?disorder?and?this?is?likely?major?cause?of?his?transaminase?elevation Encouraged?weight?loss Hydrate?well?and?avoid?Tylenol Patient?no?longer?drinks?alcohol (4) Hypercholesterolemia: Code(s): E78.00 - Pure hypercholesterolemia, unspecified Plan: LDL?cholesterol?is?elevated. Dealing?with?elevated?liver?enzymes?and?we?can?discuss?this?further?at?a?subsequent?visit (5) Elevated fasting blood sugar: Code(s): R73.01 - Impaired fasting glucose Plan: Will?check?A1c?with?upcoming?lab?work Encouraged?diet?low?in?sugars?and?starches Encouraged?weight?loss Orders: Orders Comprehensive [place]. Panel Fast Today R74.8 - Abnormal levels of other serum enzymes, Z00.00 - Encounter for general adult medical examination without abnormal findings Hemoglobin A1c Today R73.01 - Impaired fasting glucose Hepatitis B,C Profile Today R74.8 - Abnormal levels of other serum enzymes, Z11.3 - Encounter for screening for infections with a predominantly sexual mode of transmission MR lumbar spine wo con Today M54.9 - Dorsalgia, unspecified Referrals Pain Management Referral M54.30 - Sciatica, unspecified side, M54.9 - Dorsalgia, unspecified Coding Level of Care Code Est Pt Level 4 (11334) Diagnoses Hypertension I10 Back pain M54.9 Elevated liver enzymes R74.8 Hypercholesterolemia E78.00 Elevated fasting blood sugar R73.01
[2023-11-04 14:58] VITALS: BP 114/60; PULSE 93; RESP 16; TEMP 36.6; O2SAT 95; BMI 31.3
== END 2023-11-04 15:47 | disposition home or self-care (01) ==
PROVIDERS: PCP Family Medicine; Visit Provider Family Medicine
DX: I10 Essential (primary) hypertension (principal); M54.9 Dorsalgia, unspecified; R74.8 Abnormal levels of other serum enzymes; E78.00 Pure hypercholesterolemia, unspecified; R73.01 Impaired fasting glucose
CPT/HCPCS: 99214

== ENCOUNTER 2023-11-15 14:25 | Outpatient (AMB) | payer OTHER, SELFPAY ==
[2023-11-15 14:28] VITALS: BP 132/81; PULSE 115; O2SAT 95; BMI 30.6
--- NOTE | 2023-11-15 14:28 | A.OFFVIS_ITS ---
Vital Signs 11/15/23 14:28 Height 5 ft 9 in Weight 207 lb BMI 30.6 BP 132/81 Blood Pressure Location Lt brachial Position Sitting Pulse 115 H Pulse Source Pulse Oximeter Pulse Oximetry (%) 95 Oxygen Delivery Method Room Air Intake Visit Reasons: Dorsalgia, unspecified Allergies No Known Allergies [No Known Allergies*] Allergy (Verified 11/04/23 14:56) HPI Comments Details: Selvin is a very pleasant 38-year-old male who presents to the office today for evaluation management of his chronic lower back pain Reports right lower back pain with radiation down the right leg to the level of the foot Has been suffering with this pain for many years. Approximately 8 weeks ago re- injured after lifting the lawnmower At that time pain was 9/10, he was having some numbness in his leg and urinary retention. He was given prednisone which resolved the bladder symptoms and improved his pain. He has been taking nonsteroidal anti-inflammatory medications and Tylenol with minimal improvement Cyclobenzaprine provides some relief but pain persists He attempted physical therapy but it caused worsening symptoms that resulted in a trip to the emergency room In the past he has found relief with chiropractor but this time has persisted despite all attempts at conservative therapy Recent x-ray was reviewed, results as per below MRI has been ordered and is pending Denies red flag symptoms including new loss of bowel, bladder or saddle anesthesia Pain today is rated as 5/10, worse in the mornings and the evenings In terms of muscle damage condition is described as aching, hot, burning, tingling, shooting, dull, numb, pins and needles Pain is negatively impacting patient's enjoyment of life, general activity, mood, normal work, recreational activities, sleep ER visit 10/28/23: 38 yo male with history of sciatica, HTN, HLD who presents to the ER for evaluation of ongoing back pain for the last 6 weeks. Patient saw his PCP on October 01 and was ordered cyclobenzaprine and physical therapy. The plan was to obtain imaging if no improvement in his symptoms. Patient has a history of repeat trauma and injury to his lower back, first starting about 2-3 years ago when lifting and noticed severe back pain in which he went to a chiropractor and seemed to fix the problem. 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 Patient again went to chiropractor, but the pain persisted. He most recently went to his PCP about 4 weeks ago due to this pain, where he was prescribed cyclobenzaprine, high dose ibuprofen and physical therapy. States pain is radiating from his right hip and radiating down his leg, and that he is having a difficult time walking long distances or laying flat due to pain. Patient also endorses a new onset numbness, tingling down the right lateral leg occurring in the last 2 weeks. S tates the there is also a burning and pain shooting down his leg from his hip area. He endorses having bladder symptoms as well, stating that he continues to feel fullness in his bladder, like he has to pee but when he goes to urinate there is no urine. Patient states that he can not stand to pee, and needs to sit down in order to urinate. He denies any saddle anaesthesia, urinary incontinence and bowel incontinence. Was recetnyl doing a lot of walking this past weekend and states that the pain was significantly worse. 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 States that when sitting he is fine, however laying flat or standing or dangling his legs over the edge of the bed/chair causes severe pain down his right leg including tingling and burning sensation on the lateral side of his right leg. 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 Answers questions appropriately. Fully engaged in examination. Skin: warm, dry, intact HEENT: Normocephalic. Hearing intact. Cardiac: External chest normal in appearance. Respiratory: No cough, audible wheezing or stridor. Abdomen: without gross distension. MS: No obvious swelling or deformities. Able to stand on bilateral tiptoes and bilateral heels.? Able to transition from sit to stand unassisted. Ambulates with bilaterally normal heel strike and toe off SLR positive on the right Bilateral lower extremity strength 5/5 Tenderness over midline lumbar vertebrae and lumbar paraspinal muscles Negative footdrop Negative clonus Neurological: Oriented to person, place, time and situation. Thought process intact. No gait abnormalities appreciated. Psychiatric: Appropriate mood and affect. Good judgment and insight. Results Reviewed Results Reviewed: 10/28/23 XR/XR lumbar spine 2-3V FINDINGS: Normal vertebral body alignment. No acute fracture or subluxation. The lumbar lordosis is maintained. No loss of vertebral body height. Mild loss of intervertebral disc height with tiny endplate osteophytes at L3-S1. No concerning lytic or blastic osseous lesion. Phleboliths within the pelvis. IMPRESSION: Mild degenerative disc disease at L3-S1. Assessment & Plan Assessment & Plan (1) Lumbar radiculopathy: Code(s): M54.16 - Radiculopathy, lumbar region Category: Medical Plan Selvin is a very pleasant 38-year-old male who presents to the office today for evaluation management of his right lower back pain History, physical exam and provocative testing consistent with lumbar radiculopathy MRI has been ordered, results pending Discussed with patient at length diagnosis and treatment options. He has exhausted conservative therapy including attempts at PT, home exercise program, nonsteroidal anti-inflammatory medications, [id number] medications Will schedule patient for fluoroscopy guided lumbar epidural steroid injection with local anesthetic once MRI has been reviewed. All questions and concerns have been answered, patient agrees with the plan. Follow-up after MRI, sooner if needed Orders: Orders MR lumbar spine wo con 11/04/23 M54.16 - Radiculopathy, lumbar region, M54.9 - Dorsalgia, unspecified Coding Level of Care Code New Pt Level 4 (21830) Complex EM visit Add On G2211 Diagnoses Lumbar radiculopathy M54.16
== END 2023-11-15 14:59 | disposition home or self-care (01) ==
PROVIDERS: PCP Family Medicine; Visit Provider Registered Nurse Emergency
DX: M54.16 Radiculopathy, lumbar region (principal)
CPT/HCPCS: 99204; G2211

== ENCOUNTER → 2023-11-15 14:25 | Outpatient (BNVA) | payer OTHER, SELFPAY | PROVIDERS: PCP Family Medicine; Visit Provider Registered Nurse Emergency | DX: M54.16 Radiculopathy, lumbar region (principal) | CPT/HCPCS: 99202 ==

== ENCOUNTER 2023-11-24 19:38 | Outpatient (REF) | payer OTHER, SELFPAY ==
--- NOTE | ~2023-11-24 | MR_ITS ---
EXAMINATION: MR LUMBAR SPINE WITHOUT CONTRAST CLINICAL INFORMATION: Low back pain more than 6 weeks, failed PT and conservative treatment. Right lower extremity weakness, numbness and tingling. COMPARISON: None available. TECHNIQUE: MRI of the lumbar spine was obtained using routine sequences without contrast. FINDINGS: Coronal Alignment: Normal. Sagittal Alignment: There is 2 mm of retrolisthesis at L4-L5 with otherwise normal lumbosacral alignment. Lumbosacral Junction: Normal. There are 5 [id number] lumbar-type vertebral bodies. Vertebral Bodies: Vertebral body heights are well maintained. Disc Spaces and Endplates: Mild disc volume loss is noted at L3-L4 with loss of intradiscal T2 weighted signal consistent with mild degenerative change. There is loss of intradiscal T2 weighted signal at L4-L5 consistent with disc degenerative change. Endplates appear grossly intact. There is no significant spondylosis. Spinal Canal: No abnormal developmental findings. Bone Marrow: No suspicious marrow-replacing process or bone marrow edema. Partially imaged small benign vertebral hemangioma in the T11 vertebral body noted. Conus Medullaris: Terminates at T12-L1. Morphology and signal is normal. Intradural Nerve Roots: Within normal limits. L5-S1: Normal annular contour. No significant facet joint arthrosis, canal or neural foraminal stenosis. L4-L5: Broad-based [id number] subarticular disc protrusion with annular fissuring and underlying minor annular bulging, with mild encroachment on the ventral thecal sac asymmetric to the right. There is a 5 mm caudally migrated extruded fragment on the right encroaching on the right lateral recess and traversing right L5 nerve root, best visualized on image 19 of series 8. Minor facet joint hypertrophic degenerative change is noted on the right. There is no significant central canal or neural foraminal stenosis. L3-L4: Minor annular bulging noted with slight flattening of the ventral thecal sac. Minor facet hypertrophic changes are noted. There is no significant canal or neural foraminal stenosis. L2-L3: Normal aortic contour. No facet joint arthrosis, canal or foraminal stenosis. L1-L2: Normal aortic contour. No facet joint arthrosis, canal or foraminal stenosis. Paravertebral and Included Extraspinal Soft Tissues: Incidental note is made of a horseshoe kidney, which is an anatomic variant. The paravertebral soft tissues are otherwise unremarkable in appearance. MR/MR lumbar spine wo con IMPRESSION: 1. Discogenic degenerative changes at L4-L5 with a broad-based central to right subarticular disc protrusion with a small caudally migrated extruded fragment on the right encroaching on the traversing right L5 nerve root. 2. Minor annular bulging at L3-L4 with minor facet hypertrophic changes. 3. 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 Electronically signed by: Jose Grant MD 12/03/2023 09:29 AM EDT
== END 2023-11-24 19:39 | disposition home or self-care (01) ==
LOC: HO.MRI 19:38
PROVIDERS: PCP Family Medicine; Visit Provider Family Medicine
DX: M54.9 Dorsalgia, unspecified (principal); M54.16 Radiculopathy, lumbar region
CPT/HCPCS: 72148

== ENCOUNTER 2023-12-04 13:54 | Outpatient (AMB) | payer OTHER, SELFPAY ==
[2023-12-04 14:02] VITALS: BP 133/66; PULSE 97; O2SAT 97; BMI 29.8
--- NOTE | 2023-12-04 14:02 | A.OFFVIS_ITS ---
Vital Signs 12/04/23 14:02 Height 5 ft 9 in Weight 202 lb BMI 29.8 BP 133/66 Blood Pressure Location Rt brachial Position Sitting Pulse 97 Pulse Source Pulse Oximeter Pulse Oximetry (%) 97 Oxygen Delivery Method Room Air Intake Visit Reasons: Discuss MRI Results Allergies No Known Allergies [No Known Allergies*] Allergy (Verified 12/04/23 14:02) Medication List - Last Reconciled 12/04/23 by Connie Olguin cyclobenzaprine 10 mg PO TID PRN lisinopril 20 mg PO DAILY 90 days HPI Comments Details: Patient presents back to the office today for follow-up right lower back pain, review recent MRI MRI reviewed, results as per below Patient continues with right lower back pain with radiation down the right leg to the foot Endorses some burning, numbness and discomfort in the right foot with extensive sitting or driving Denies red flag symptoms including new loss of bowel, bladder or saddle anesthesia Prior: Selvin is a very pleasant 38-year-old male who presents to the office today for evaluation management of his chronic lower back pain Reports right lower back pain with radiation down the right leg to the level of the foot Has been suffering with this pain for many years. Approximately 8 weeks ago re- injured after lifting the lawnmower At that time pain was 9/10, he was having some numbness in his leg and urinary retention. He was given prednisone which resolved the bladder symptoms and improved his pain. He has been taking nonsteroidal anti-inflammatory medications and Tylenol with minimal improvement Cyclobenzaprine provides some relief but pain persists He attempted physical therapy but it caused worsening symptoms that resulted in a trip to the emergency room In the past he has found relief with chiropractor but this time has persisted despite all attempts at conservative therapy Recent x-ray was reviewed, results as per below MRI has been ordered and tor day is pending Denies red flag symptoms including new loss of bowel, bladder or saddle anesthesia Pain today is rated as 5/10, worse in the mornings and the evenings In terms of muscle damage condition is described as aching, hot, burning, tingling, shooting, dull, numb, pins and needles Pain is negatively impacting patient's enjoyment of life, general activity, mood, normal work, recreational activities, sleep ER visit 10/28/23: 38 yo male with history of sciatica, HTN, HLD who presents to the ER for evaluation of ongoing back pain for the last 6 weeks. Patient saw his PCP on October 01 and was ordered cyclobenzaprine and physical therapy. The plan was to obtain imaging if no improvement in his symptoms. Patient has a history of repeat trauma and injury to his lower back, first starting about 2-3 years ago when lifting and noticed severe back pain in which he went to a chiropractor and seemed to fix the problem. 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 Patient again went to chiropractor, but the pain persisted. He most recently went to his PCP about 4 weeks ago due to this pain, where he was prescribed cyclobenzaprine, high dose ibuprofen and physical therapy. States pain is radiating from his right hip and radiating down his leg, and that he is having a difficult time walking long distances or laying flat due to pain. Patient also endorses a new onset numbness, tingling down the right lateral leg occurring in the last 2 weeks. States the there is also a burning and pain shooting down his leg from his hip area. He endorses having bladder symptoms as well, stating that he continues to feel fullness in his bladder, like he has to pee but when he goes to urinate there is no urine. Patient states that he can not stand to pee, and needs to sit down in order to urinate. He denies any saddle anaesthesia, urinary incontinence and bowel incontinence. Was recetnyl doing a lot of walking this past weekend and states that the pain was significantly worse. 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 States that when sitting he is fine, however laying flat or standing or dangling his legs over the edge of the bed/chair causes severe pain down his right leg including tingling and burning sensation on the lateral side of his right leg. [facility] Medical History (Updated 11/04/23 @ 15:51 by Deric Park MD) History of drug abuse Surgical History No pertinent past surgical history Family History Mother Substance abuse Mental health disorder Father Substance abuse Maternal Grandmother Substance abuse Brother Substance abuse Mental health disorder Social History Housing: House Patient Tobacco Use Status: Never used Tobacco e-Cigarette/Vaping Use: Never Used service: No Current occupational status: employed Current occupation: [employer] Current occupational exposures/hazards: No Cognitive needs: No Hearing needs: No Vision needs: No Review of Systems Const All systems reviewed & are unremarkable except as noted in HPI and below Physical Exam Vital Signs: Last Vital Signs Pulse 97 12/04/23 14:02 BP 133/66 12/04/23 14:02 Pulse Ox 97 12/04/23 14:02 Oxygen Delivery Method Room Air 12/04/23 14:02 BMI result Body Mass Index 29.8 General: awake, alert, oriented. Answers questions appropriately. Fully engaged in examination. Skin: warm, dry, intact HEENT: Normocephalic. Hearing intact. Cardiac: External chest normal in appearance. Respiratory: No cough, audible wheezing or stridor. Abdomen: without gross distension. MS: No obvious swelling or deformities. Able to stand on bilateral tiptoes and bilateral heels.? Able to transition from sit to stand unassisted. Ambulates with bilaterally normal heel strike and toe off SLR positive on the right Bilateral lower extremity strength 5/5 Negative footdrop Negative clonus Neurological: Oriented to person, place, time and situation. Thought process intact. No gait abnormalities appreciated. Psychiatric: Appropriate mood and affect. Good judgment and insight. Results Reviewed Results Reviewed: 11/24/23 MRI lumbar spine Sagittal Alignment: There is 2 mm of retrolisthesis at L4-L5 with otherwise normal lumbosacral alignment. Lumbosacral Junction: Normal. There are 5 [id number]-qleaggq lumbar-type vertebral bodies. Vertebral Bodies: Vertebral body heights are well maintained. Disc Spaces and Endplates: Mild disc volume loss is noted at L3-L4 with loss of intradiscal T2 weighted signal consistent with mild degenerative change. There is loss of intradiscal T2 weighted signal at L4-L5 consistent with disc degenerative change. Endplates appear grossly intact. There is no significant spondylosis. Spinal Canal: No abnormal developmental findings. Bone Marrow: No suspicious marrow-replacing process or bone marrow edema. Partially imaged small benign vertebral hemangioma in the T11 vertebral body noted. Conus Medullaris: Terminates at T12-L1. Morphology and signal is normal. Intradural Nerve Roots: Within normal limits. L5-S1: Normal annular contour. No significant facet joint arthrosis, canal or neural foraminal stenosis. L4-L5: Broad-based bjyfrec-ep-ctvou subarticular disc protrusion with annular fissuring and underlying minor annular bulging, with mild encroachment on the ventral thecal sac asymmetric to the right. There is a 5 mm caudally migrated extruded fragment on the right encroaching on the right lateral recess and traversing right L5 nerve root, best visualized on image 19 of series 8. Minor facet joint hypertrophic degenerative change is noted on the right. There is no significant central canal or neural foraminal stenosis. L3-L4: Minor annular bulging noted with slight flattening of the ventral thecal sac. Minor facet hypertrophic changes are noted. There is no significant canal or neural foraminal stenosis. L2-L3: Normal aortic contour. No facet joint arthrosis, canal or foraminal stenosis. L1-L2: Normal aortic contour. No facet joint arthrosis, canal or foraminal stenosis. Paravertebral and Included Extraspinal Soft Tissues: Incidental note is made of a horseshoe kidney, which is an anatomic variant. The paravertebral soft tissues are otherwise unremarkable in appearance. IMPRESSION: 1. Discogenic degenerative changes at L4-L5 with a broad-based central to right subarticular disc protrusion with a small caudally migrated extruded fragment on the right encroaching on the traversing right L5 nerve root. 2. Minor annular bulging at L3-L4 with minor facet hypertrophic changes. 3. 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 10/28/23 XR/XR lumbar spine 2-3V FINDINGS: Normal vertebral body alignment. No acute fracture or subluxation. The lumbar lordosis is maintained. No loss of vertebral body height. Mild loss of intervertebral disc height with tiny endplate osteophytes at L3-S1. No concerning lytic or blastic osseous lesion. Phleboliths within the pelvis. IMPRESSION: Mild degenerative disc disease at L3-S1. Assessment & Plan Assessment & Plan (1) Lumbar radiculopathy: Code(s): M54.16 - Radiculopathy, lumbar region Category: Medical Plan Selvin presented back to the office today for follow-up right lumbar radiculopathy MRI reviewed, results as per above Discussed with patient at length diagnosis and treatment options. He has exhausted conservative therapy including attempts at PT, home exercise program, nonsteroidal anti-inflammatory medications, blzp-ini-dqfehmu medications Will schedule patient for fluoroscopy guided right L4-5 transforaminal epidural steroid injection with local anesthetic All questions and concerns have been answered, patient agrees with the plan. Follow-up after procedure, sooner if needed Coding Level of Care Code Est Pt Level 3 (69438) Complex EM visit Add On G2211 Diagnoses Lumbar radiculopathy M54.16
== END 2023-12-04 14:30 | disposition home or self-care (01) ==
PROVIDERS: PCP Family Medicine; Visit Provider Registered Nurse Emergency
DX: M54.16 Radiculopathy, lumbar region (principal)
CPT/HCPCS: 99213; G2211

== ENCOUNTER → 2023-12-04 13:54 | Outpatient (BNVA) | payer OTHER, SELFPAY | PROVIDERS: PCP Family Medicine; Visit Provider Registered Nurse Emergency | DX: M54.16 Radiculopathy, lumbar region (principal) | CPT/HCPCS: 99212 ==

== ENCOUNTER 2024-01-09 14:42 | Outpatient (AMB) | payer OTHER, SELFPAY ==
--- NOTE | 2024-01-09 15:03 | MHC.PC.OV ---
Vital Signs 01/09/24 15:04 Height 5 ft 9 in Weight 201 lb BMI 29.7 BP 106/56 L Blood Pressure Location Lt brachial Position Sitting Respiration 16 Pulse 77 Pulse Source Pulse Oximeter Temp 98.8 F Temp Source Temporal Artery Scan Pulse Oximetry (%) 96 Oxygen Delivery Method Room Air Intake Visit Reasons: f/u back pain, chronic conditions Intake Note: f/u for back pain and chronic conditions Allergies No Known Allergies [No Known Allergies*] Allergy (Verified 01/09/24 15:03) Tobacco use date assessed: 07/31/23 Dental Screening Dental Screen Date: 07/09/23 HPI f/u back pain, chronic conditions HPI Details 38 y/o male presents to f/u multiple chronic conditions such as back pain. Had referred to pain management. Per lumbar spine MRI 11/24/23: 1. Discogenic degenerative changes at L4-L5 with a broad-based central to right subarticular disc protrusion with a small caudally migrated extruded fragment on the right encroaching on the traversing right L5 nerve root. 2. Minor annular bulging at L3-L4 with minor facet hypertrophic changes. 3. 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 Has been taking ibuprofen for relief. Followed by pain management. 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 1. Little interest or pleasure in doing things: not at all 2. Feeling down, depressed, or hopeless: not at all 3. Trouble falling or staying asleep, or sleeping too much: not at all 4. Feeling tired or having little energy: not at all 5. Poor appetite or overeating: not at all 6. Feeling bad about yourself - or that you are a failure or have let yourself or your family down: not at all Source: Developed by Drs. Homero Shepard, Rosaura Hernandez, Edilberto Shane and colleagues, with an educational josephine from [employer]. Thrive Questionnaire Date Thrive assessed: 07/09/23 I am a: Patient What is your living situation today?: I have a steady place to live Within the past 12 months, did the food you bought not last and you didn't have the money to get more?: I choose not to answer this question Within the past 12 months, did you worry whether your food would run out before you got money to buy more?: I choose not to answer this question Do you have trouble paying for medicines?: I choose not to answer this question Do you have trouble getting transportation to medical appointments?: I choose not to answer this question Do you have trouble paying your heating and electricity bill?: I choose not to answer this question Do you have trouble taking care of your child, family member or friend?: I choose not to answer this question Do you have trouble with day-to-day activities such as bathing, preparing meals, shopping, managing finances, etc.?: I choose not to answer this question Are you currently unemployed and looking for a job?: I choose not to answer this question Are you interested in more education?: I choose not to answer this question Please select the resources that you would like help with: None Currently or been in a relationship where the following occur: I choose not to answer THRIVE Score: 0 AUDIT C Alcohol Use Questionnaire (AUDIT-C) 1. How often do you have a drink containing alcohol?: Never Total Score: 0 ALLIE-7 AMB Questionnaire ALLIE-7 Date ALLIE - 7 assessed: 07/09/23 Feeling nervous, anxious, or on edge: 0 = Not at all Not being able to stop or control worryin = Not at all Worrying too much about different things: 0 = Not at all Trouble relaxin = Not at all Being so restless that it is hard to sit still: 0 = Not at all Becoming easily annoyed or irritable: 0 = Not at all Feeling afraid as if something awful might happen: 0 = Not at all Total ALLIE-7 score (0-4 normal; 5-9 mild; 10-14 moderate; 15-21 severe): 0 Source: Developed by Drs. Homero Shepard, Rosaura Hernandez, Edilberto Shane and colleagues, with an educational josephine from [employer]. Review of Systems Const Denies chills, Denies fatigue, Denies fever(s), Denies headache(s) and Denies weakness ENT Denies dizziness and Denies headache(s) Card Denies dyspnea Resp Denies cough, Denies dyspnea, Denies wheezing and Denies other (shortness of breath) Musc Reports back pain, Denies numbness and Denies tingling Neuro Denies dizziness, Denies headache(s), Denies numbness, Denies tingling and Denies weakness Psych Denies anxiety and Denies depression Endo Denies fatigue Aller/Immun Denies wheezing Physical exam (Primary Care) Vital Signs: Last Vital Signs Temp 98.8 F 01/09/24 15:04 Pulse 77 01/09/24 15:04 Resp 16 01/09/24 15:04 BP 106/56 L 01/09/24 15:04 Pulse Ox 96 01/09/24 15:04 Oxygen Delivery Method Room Air 01/09/24 15:04 BMI result Body Mass Index 29.7 Tobacco/Smoking Status: Tobacco use Status Tobacco use date assessed 07/31/23 01/09/24 15:09 Patient Tobacco Use Status Never used Tobacco 01/09/24 15:09 e-Cigarette/Vaping Use Never Used 01/09/24 15:09 Thrive Assessment: Date of Thrive Assessment Date Thrive assessed 07/09/23 01/09/24 15:09 Currently or been in a relationship where the following occur: I choose not to answer Const General: well developed; No acute distress Nutritional Appearance: well nourished Orientation/consciousness: patient oriented x3 HENMT Head: Yes normocephalic and Yes atraumatic Eyes General: appearance normal, both eyes and all related structures Pupils: Equal, round and reactive pupils present EOM: EOMs intact bilaterally Resp Effort & Inspection: normal respiratory effort Auscultation: clear to auscultation bilaterally Cardio Rate: regular rate Rhythm: regular rhythm Heart sounds: S1 normal heart sound present, S2 normal heart sound present, no gallops, no murmurs and no rubs Neuro General: patient oriented x3 and gait normal Cranial nerves: Yes Equal, round and reactive pupils present Psych Affect: normal affect Coding Level of Care Code Est Pt Level 3 (06243) Diagnoses Back pain M54.9 Sciatica M54.30 Assessment & Plan Assessment & Plan (1) Back pain: Code(s): M54.9 - Dorsalgia, unspecified Category: Medical Plan: Ongoing?back?pain?and?MRI?positive - see?HPI Now?followed?by?pain?management?and?recommended fluoroscopy?guided?corticosteroid?injection?therapy Discussed?with?patient?today. Will?give?him?a?short?course?of?steroid?and?then?transition?to?NSAID;?meloxicam.??Hydrate?well?and?avoid?other?NSAIDs. Repeat?cyclobenzaprine If?he?is?doing?well?on?this?regimen, he?can?trial?physical?therapy?again. Follow-up?with?pain?management?as?recommended (2) Sciatica: Code(s): M54.30 - Sciatica, unspecified side Category: Medical Plan: As?above Medications: New prednisone 40 mg (2 x 20 mg) PO DAILY 5 days 10 tabs 0RF meloxicam 15 mg PO DAILY 30 days 30 tabs 2RF Refilled cyclobenzaprine 10 mg PO TID PRN 30 tabs 0RF muscle spasm
[2024-01-09 15:04] VITALS: BP 106/56; PULSE 77; RESP 16; TEMP 37.1; O2SAT 96; BMI 29.7
== END 2024-01-09 15:51 | disposition home or self-care (01) ==
PROVIDERS: PCP Family Medicine; Visit Provider Family Medicine
DX: M54.9 Dorsalgia, unspecified (principal); M54.30 Sciatica, unspecified side

== ENCOUNTER → 2024-01-09 14:42 | Outpatient (BNVA) | payer OTHER, SELFPAY | PROVIDERS: PCP Family Medicine; Visit Provider Family Medicine | DX: M54.9 Dorsalgia, unspecified (principal); M54.30 Sciatica, unspecified side | CPT/HCPCS: 99212 ==

== ENCOUNTER 2024-01-21 06:14 | Outpatient (REF) | payer OTHER, SELFPAY | END 2024-01-21 06:15 | disposition home or self-care (01) | LOC: CF 06:14 | PROVIDERS: Visit Provider Anesthesiology | DX: M54.30 Sciatica, unspecified side (principal); M54.16 Radiculopathy, lumbar region | CPT/HCPCS: 64483; J2003; J3301; Q9967 ==

== ENCOUNTER 2024-01-21 10:18 | Outpatient (AMB) | payer OTHER, SELFPAY ==
--- NOTE | 2024-01-21 10:21 | A.OFFVIS_ITS ---
Vital Signs 01/21/24 10:50 01/21/24 10:51 Height 5 ft 9 in 5 ft 9 in Weight 201 lb 201 lb BMI 29.7 29.7 BP 120/66 118/72 Blood Pressure Location Lt brachial Lt brachial Position Sitting Sitting Respiration 16 16 Pulse 93 89 Pulse Source Pulse Oximeter Pulse Oximeter Pulse Oximetry (%) 98 97 Oxygen Delivery Method Room Air Room Air Comment pre-op post-op Intake Visit Reasons: RIGHT L4, S1 TFESI Allergies No Known Allergies [No Known Allergies*] Allergy (Verified 01/21/24 10:52) [facility] Medical History (Updated 11/04/23 @ 15:51 by Deric Park MD) History of drug abuse Surgical History No pertinent past surgical history Family History Mother Substance abuse Mental health disorder Father Substance abuse Maternal Grandmother Substance abuse Brother Substance abuse Mental health disorder Social History Housing: House Patient Tobacco Use Status: Never used Tobacco e-Cigarette/Vaping Use: Never Used service: No Current occupational status: employed 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 The patient came to the operating room. She was positioned prone on operating table with a pillow under her abdomen. Time-out was performed delineating correct site and side of the procedure, nature of the injection, name and date of of the patient. The lower back of the patient was prepped with ChloraPrep and draped with sterile utility towels. C-arm was brought over the operating field and sq picture of L4 vertebra was demonstrated on the screen. The right side was chosen as the side of the injection. Tilting machine ipsilateral to the right at the level of L4 the most prominent picture of the pedicle on the right was demonstrated on the screen. 3 mm below the most lowest point of the pedicle projection to the skin small amount of lidocaine 1% was injected to anesthetize the skin. After that 5 in 22 gauge Quincke point needle was inserted through the skin wheal and was advanced to were the L4-L5 foramina on anterior posterior, lateral and oblique views intermittently. When the needle entered foramina on AP view When tip of the needle entered foramina projection on AP view injection of the contrast was performed demonstrating epidural and perineural spread of the contrast. After that injection of the treatment medicine 2 cc of preservative-free lidocaine 1% mixed with Kenalog 40 mg was injected into the foramina. No intrathecal and no intravascular spread of the contrast was noted. The needle was removed . Upon completion of the procedure needle was removed and sterile Band-Aid was applied. Patient tolerated the procedure well. Plan Selvin presented back to the office today for follow-up right lumbar radiculopathy MRI reviewed, results as per above Discussed with patient at length diagnosis and treatment options. He has exhausted conservative therapy including attempts at PT, home exercise program, nonsteroidal anti-inflammatory medications, antb-wqc-wjtkndr medications Will schedule patient for fluoroscopy guided right L4-5 transforaminal epidural steroid injection with local anesthetic All questions and concerns have been answered, patient agrees with the plan. Follow-up after procedure, sooner if needed Orders: Orders FL guidance in treatment room Today M54.30 - Sciatica, unspecified side Coding Level of Care Code Procedure Only Diagnoses Lumbar radiculopathy M54.16
[2024-01-21 10:50] VITALS: BP 120/66; PULSE 93; RESP 16; O2SAT 98; BMI 29.7
[2024-01-21 10:51] VITALS: BP 118/72; PULSE 89; RESP 16; O2SAT 97; BMI 29.7
== END 2024-01-21 10:50 | disposition home or self-care (01) ==
LOC: HO.PMCPRC 10:18
PROVIDERS: PCP Family Medicine; Visit Provider Anesthesiology
DX: M54.16 Radiculopathy, lumbar region (principal)
CPT/HCPCS: 64483

== ENCOUNTER 2024-02-19 14:53 | Outpatient (AMB) | payer OTHER, SELFPAY ==
--- NOTE | 2024-02-19 14:56 | MHC.OFFVIS ---
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 Since then he has been suffering with increasing lower back pain. Denies any red flag symptoms including loss of bowel, bladder or saddle anesthesia. Prior: Patient presents back to the office today for follow-up right lower back pain, review recent MRI MRI reviewed, results as per below Patient continues with right lower back pain with radiation down the right leg to the foot Endorses some burning, numbness and discomfort in the right foot with extensive sitting or driving Denies red flag symptoms including new loss of bowel, bladder or saddle anesthesia Prior: Selvin is a very pleasant 38-year-old male who presents to the office today for evaluation management of his chronic lower back pain Reports right lower back pain with radiation down the right leg to the level of the foot Has been suffering with this pain for many years. Approximately 8 weeks ago re-injured after lifting the lawnmower At that time pain was 9/10, he was having some numbness in his leg and urinary retention. He was given prednisone which resolved the bladder symptoms and improved his pain. He has been taking nonsteroidal anti-inflammatory medications and Tylenol with minimal improvement Cyclobenzaprine provides some relief but pain persists He attempted physical therapy but it caused worsening symptoms that resulted in a trip to the emergency room In the past he has found relief with chiropractor but this time has persisted despite all attempts at conservative therapy Recent x-ray was reviewed, results as per below MRI has been ordered and is pending Denies red flag symptoms including new loss of bowel, bladder or saddle anesthesia Pain today is rated as 5/10, worse in the mornings and the evenings In terms of muscle damage condition is described as aching, hot, burning, tingling, shooting, dull, numb, pins and needles Pain is negatively impacting patient's enjoyment of life, general activity, mood, normal work, recreational activities, sleep ER visit 10/28/23: 38 yo male with history of sciatica, HTN, HLD who presents to the ER for evaluation of ongoing back pain for the last 6 weeks. Patient saw his PCP on October 01 and was ordered cyclobenzaprine and physical therapy. The plan was to obtain imaging if no improvement in his symptoms. Patient has a history of repeat trauma and injury to his lower back, first starting about 2-3 years ago when lifting and noticed severe back pain in which he went to a chiropractor and seemed to fix the problem. 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 Most recently about 6 weeks ago, patient bent down to fixed tire of gasoline tester when he felt severe pain in his lower right back. Patient again went to chiropractor, but the pain persisted. He most recently went to his PCP about 4 weeks ago due to this pain, where he was prescribed cyclobenzaprine, high dose ibuprofen and physical therapy. States pain is radiating from his right hip and radiating down his leg, and that he is having a difficult time walking long distances or laying flat due to pain. Patient also endorses a new onset numbness, tingling down the right lateral leg occurring in the last 2 weeks. States the there is also a burning and pain shooting down his leg from his hip area. He endorses having bladder symptoms as well, stating that he continues to feel fullness in his bladder, like he has to pee but when he goes to urinate there is no urine. Patient states that he can not stand to pee, and needs to sit down in order to urinate. He denies any saddle anaesthesia, urinary incontinence and bowel incontinence. Was recetnyl doing a lot of walking this past weekend and states that the pain was significantly worse. 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 States that when sitting he is fine, however laying flat or standing or dangling his legs over the edge of the bed/chair causes severe pain down his right leg including tingling and burning sensation on the lateral side of his right leg. 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 Answers questions appropriately. Fully engaged in examination. Skin: warm, dry, intact HEENT: Normocephalic. Hearing intact. Cardiac: External chest normal in appearance. Respiratory: No cough, audible wheezing or stridor. Abdomen: without gross distension. MS: No obvious swelling or deformities. Neurological: Oriented to person, place, time and situation. Thought process intact. No gait abnormalities appreciated. Psychiatric: Appropriate mood and affect. Good judgment and insight. Results Reviewed Results Reviewed: 11/24/23 MRI lumbar spine Sagittal Alignment: There is 2 mm of retrolisthesis at L4-L5 with otherwise normal lumbosacral alignment. Lumbosacral Junction: Normal. There are 5 zlh-ktc-sjaxlff lumbar-type vertebral bodies. Vertebral Bodies: Vertebral body heights are well maintained. Disc Spaces and Endplates: Mild disc volume loss is noted at L3-L4 with loss of intradiscal T2 weighted signal consistent with mild degenerative change. There is loss of intradiscal T2 weighted signal at L4-L5 consistent with disc degenerative change. Endplates appear grossly intact. There is no significant spondylosis. Spinal Canal: No abnormal developmental findings. Bone Marrow: No suspicious marrow-replacing process or bone marrow edema. Partially imaged small benign vertebral hemangioma in the T11 vertebral body noted. Conus Medullaris: Terminates at T12-L1. Morphology and signal is normal. Intradural Nerve Roots: Within normal limits. L5-S1: Normal annular contour. No significant facet joint arthrosis, canal or neural foraminal stenosis. L4-L5: Broad-based izspvzj-zd-ppzbu subarticular disc protrusion with annular fissuring and underlying minor annular bulging, with mild encroachment on the ventral thecal sac asymmetric to the right. There is a 5 mm caudally migrated extruded fragment on the right encroaching on the right lateral recess and traversing right L5 nerve root, best visualized on image 19 of series 8. Minor facet joint hypertrophic degenerative change is noted on the right. There is no significant central canal or neural foraminal stenosis. L3-L4: Minor annular bulging noted with slight flattening of the ventral thecal sac. Minor facet hypertrophic changes are noted. There is no significant canal or neural foraminal stenosis. L2-L3: Normal aortic contour. No facet joint arthrosis, canal or foraminal stenosis. L1-L2: Normal aortic contour. No facet joint arthrosis, canal or foraminal stenosis. Paravertebral and Included Extraspinal Soft Tissues: Incidental note is made of a horseshoe kidney, which is an anatomic variant. The paravertebral soft tissues are otherwise unremarkable in appearance. IMPRESSION: 1. Discogenic degenerative changes at L4-L5 with a broad-based central to right subarticular disc protrusion with a small caudally migrated extruded fragment on the right encroaching on the traversing right L5 nerve root. 2. Minor annular bulging at L3-L4 with minor facet hypertrophic changes. 3. 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 10/28/23 XR/XR lumbar spine 2-3V FINDINGS: Normal vertebral body alignment. No acute fracture or subluxation. The lumbar lordosis is maintained. No loss of vertebral body height. Mild loss of intervertebral disc height with tiny endplate osteophytes at L3-S1. No concerning lytic or blastic osseous lesion. Phleboliths within the pelvis. IMPRESSION: Mild degenerative disc disease at L3-S1. Assessment & Plan Assessment & Plan (1) Lumbar radiculopathy: Code(s): M54.16 - Radiculopathy, lumbar region Category: Medical Plan Selvin presented back to the office today for follow-up right lumbar radiculopathy 1 month status post right L4-5 transforaminal epidural steroid injection 80% pain relief with improvement in functional ability for 1 month after the injection. Pain returned after increased activity, walking on the treadmill, using a stationary bike at the gym. Referral placed her neuro spine Refill cyclobenzaprine 10 mg p.o. 3 times daily as needed patient advised on cautions for use All questions and concerns have been answered, patient agrees with the plan. Follow-up after neuro spine eval, sooner if needed Orders: Referrals Neuro Spine Referral M54.16 - Radiculopathy, lumbar region Medications: Refilled cyclobenzaprine 10 mg PO TID PRN 90 tabs 1RF muscle spasm Coding Level of Care Code Est Pt Level 3 (88863) Complex EM visit Add On G2211 Diagnoses Lumbar radiculopathy M54.16
[2024-02-19 15:01] VITALS: BP 132/82; PULSE 76; O2SAT 98; BMI 28.8
== END 2024-02-19 15:22 | disposition home or self-care (01) ==
PROVIDERS: PCP Family Medicine; Visit Provider Registered Nurse Emergency
DX: M54.16 Radiculopathy, lumbar region (principal)
CPT/HCPCS: 99213; G2211

== ENCOUNTER → 2024-02-19 14:53 | Outpatient (BNVA) | payer OTHER, SELFPAY | PROVIDERS: PCP Family Medicine; Visit Provider Registered Nurse Emergency | DX: M54.16 Radiculopathy, lumbar region (principal) | CPT/HCPCS: 99212 ==

== ENCOUNTER 2024-02-27 12:54 | Outpatient (AMB) | payer OTHER, SELFPAY ==
--- NOTE | 2024-02-27 12:56 | HO.SPINEOV ---
Vital Signs 02/27/24 12:59 Height 5 ft 9 in Weight 194 lb BMI 28.6 Intake Visit Reasons: radiculopathy, lumbar region Intake Note: Mr. Hugo is here today c/o low back pain that radiate down to the feet mostly right sided. 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 He is a very nice 38-year-old gentleman who presents to the office today for evaluation of back pain and intermittent right leg pain. The symptoms started back in August, with right leg pain that was severe and crippling. The patient had had on and off back issues previous to that, but in general it was just if he went too hard at the gym or if he had some kind of heavy lifting to do. 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 He ended up in the emergency room, underwent some conservative management including a brief course of physical therapy, chiropractic as well as acupuncture. He he was on and continues to take meloxicam and Flexeril at night. Would ultimately made the leg pain go away was a trial of prednisone. He was left however with the back pain and an occasional right leg pain. In general he is significantly better than what he was over the summer. He is still functional and able to do most things, he is returned to work but he is still dealing with intermittent back pain if he pushes himself too hard. He has generally been avoiding lifting, but sometimes it is necessary. He did recently undergo an L4-5 epidural which helped his back pain significantly. For 2 weeks he was almost completely pain-free. He is here today with an MRI showing a herniated disc on the right at L4-5. PMH: Otherwise healthy, denies any other medical problems Social hx: He does not smoke, drink use any recreational drugs Medications: CBD gummies, meloxicam cyclobenzaprine Allergies: None Physical exam: Awake alert oriented no acute distress, gait normal, strength and reflexes normal Imaging review: Lumbar MRI done on November of 2023 at [facility] shows slight disc bulge on the right at L4-5 with small disc herniation displacing the right L5 nerve root Impression: 38 year old male presents to the office today with persistent back pain after having what sounds like a lumbar radiculopathy secondary to herniated disc at L4-5 on the right. Currently based on the imaging from about 3 months ago the disc herniation was very small with just some mild displacement the right L5 nerve. The leg pain has more less gone away. What he is dealing with now is back pain that is related to activity. I showed him his MRI, we discussed the natural history of back pain and the difficulty with isolating where it is coming from. A lot of the pain he is currently feeling is higher up near thoracolumbar junction. He does get some lower lumbar pain however. It seems to move around a bit. 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 I am not sure if I can exactly correlate his pain to the small herniated disc. If he had some kind of localizing leg pain that was a prominent feature, I think we could offer him surgery but right now I think he just needs to continue to let this heal. He is significantly more functional and less pain than he was a few months ago. I told him I would be happy to see him back and we can get a new MRI of the leg pain returns like it was in the summer. Otherwise he would like to just try physical therapy again which I think is reasonable. He can also consider another injection at your office as well. Thank you for allowing us to care for your patient. The total time spent with this visit with this patient was 45 minutes reviewing history, physical exam, lumbar imaging review, and implementation of treatment plan or further diagnostic testing Maikol Lira MD,PhD [facility] Coding Level of Care Code New Pt Level 4 (36079) Diagnoses Back pain M54.9
[2024-02-27 12:59] VITALS: BMI 28.6
== END 2024-02-27 14:09 | disposition home or self-care (01) ==
PROVIDERS: PCP Family Medicine; Referring Provider Registered Nurse Emergency; Visit Provider Physician Assistant
DX: M54.9 Dorsalgia, unspecified (principal)
CPT/HCPCS: 99204

== ENCOUNTER → 2024-02-27 12:54 | Outpatient (BNVA) | payer OTHER, SELFPAY | PROVIDERS: PCP Family Medicine; Referring Provider Registered Nurse Emergency; Visit Provider Physician Assistant | DX: M54.16 Radiculopathy, lumbar region (principal) | CPT/HCPCS: 99202 ==

== ENCOUNTER 2024-03-09 14:22 | Outpatient (AMB) | payer OTHER, SELFPAY ==
--- NOTE | 2024-03-09 14:38 | A.OFFPC_ITS ---
Vital Signs 03/09/24 14:42 Height 5 ft 9 in Weight 198 lb BMI 29.2 BP 118/70 Blood Pressure Location Rt brachial Position Sitting Respiration 16 Pulse 94 Pulse Source Pulse Oximeter Temp 97.9 F Temp Source Oral Pulse Oximetry (%) 97 Oxygen Delivery Method Room Air Intake Visit Reasons: f/u back pain, labs Intake Note: f/u for back pain pt was referred for surgery but declince because he wants to just follow up with pt at the moment Allergies No Known Allergies [No Known Allergies*] Allergy (Verified 03/09/24 14:41) Tobacco use date assessed: 07/31/23 Dental Screening Dental Screen Date: 07/09/23 HPI f/u back pain, labs HPI Details 39 y/o male presents to f/u back pain. Continues taking meloxicam and cyclobenzaprine for relief. Had [place] [facility] [place]. Backpain did improve after epidural. MRI showed mild bulge at L4-L5. Reports intermittent ankle pain throughout the night. Also notes intermittent wrist pain. 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 7. Trouble concentrating on things, such as reading the newspaper or watching television: not at all 8. Moving or speaking so slowly that other people could have noticed. Or the opposite - being so fidgety or restless that you have been moving around a lot m ore than usual: not at all 9. Thoughts that you would be better off or of hurting yourself in some way: not at all Source: Developed by Drs. Homero Shepard, Rosaura Hernandez, Edilberto Shane and colleagues, with an educational josephine from [employer]. Thrive Questionnaire Date Thrive assessed: 01/09/24 I am a: Patient What is your living situation today?: I have a steady place to live Within the past 12 months, did the food you bought not last and you didn't have the money to get more?: I choose not to answer this question Within the past 12 months, did you worry whether your food would run out before you got money to buy more?: I choose not to answer this question Do you have trouble paying for medicines?: I choose not to answer this question Do you have trouble getting transportation to medical appointments?: I choose not to answer this question Do you have trouble paying your heating and electricity bill?: I choose not to answer this question Do you have trouble taking care of your child, family member or friend?: I choose not to answer this question Do you have trouble with day-to-day activities such as bathing, preparing meals, shopping, managing finances, etc.?: I choose not to answer this question Are you currently unemployed and looking for a job?: I choose not to answer this question Are you interested in more education?: I choose not to answer this question Please select the resources that you would like help with: None Currently or been in a relationship where the following occur: I choose not to answer THRIVE Score: 0 ALLIE-7 AMB Questionnaire ALLIE-7 Date ALLIE - 7 assessed: 07/09/23 Source: Developed by Drs. Homero Shepard, Rosaura Heranndez, Edilberto Shane and colleagues, with an educational josephine from [employer]. Physical exam (Primary Care) Vital Signs: Last Vital Signs Temp 97.9 F 03/09/24 14:42 Pulse 94 03/09/24 14:42 Resp 16 03/09/24 14:42 BP 118/70 03/09/24 14:42 Pulse Ox 97 03/09/24 14:42 Oxygen Delivery Method Room Air 03/09/24 14:42 BMI result Body Mass Index 29.2 Tobacco/Smoking Status: Tobacco use Status Tobacco use date assessed 07/31/23 03/09/24 14:38 Patient Tobacco Use Status Never used Tobacco 03/09/24 14:38 e-Cigarette/Vaping Use Never Used 03/09/24 14:38 Thrive Assessment: Date of Thrive Assessment Date Thrive assessed 01/09/24 03/09/24 14:38 Currently or been in a relationship where the following occur: I choose not to answer Coding Level of Care Code Est Pt Level 4 (83000) Diagnoses Back pain M54.9 Sciatica M54.30 Ankle pain M25.579 Assessment & Plan Assessment & Plan (1) Back pain: Code(s): M54.9 - Dorsalgia, unspecified Category: Medical Plan: Chronic?back?pain?with?sciatica?which?has?improved?after?epidural MRI?did?show?a?mild?bulge?at?L4-5 He?is?will?begin?physical?therapy?and?I?encouraged?this Continue?meloxicam?and?can?use?muscle?relaxant?needed (2) Sciatica: Code(s): M54.30 - Sciatica, unspecified side Category: Medical Plan: As?above (3) Ankle pain: Code(s): M25.579 - Pain in unspecified ankle and joints of unspecified foot Category: Medical Plan: Patient?notes?recurrent?ankle?pain?which?tends?to?flare?in?1?ankle?or?the?other? but?sometimes?both Possible?go ut?but?bilateral?symptoms?do?make?this?less?likely.??Will?check?uric?acid?level Possible?inflammatory?arthrosis. ?Will?check?inflammatory?markers.??If?abnormal?may?consider?further?investigatio n?referral Discuss?patient?at?his?follow-up Orders: Orders Hepatitis B,C Profile Today R73.01 - Impaired fasting glucose, Z11.3 - Encounter for screening for infections with a predominantly sexual mode of transmission Free T4 (Free Thyroxine) Today E03.9 - Hypothyroidism, unspecified, R79.89 - Other specified abnormal findings of blood chemistry Thyroid Stimulating Hormone Today E03.9 - Hypothyroidism, unspecified, R79.89 - Other specified abnormal findings of blood chemistry Uric Acid Today M25.579 - Pain in unspecified ankle and joints of unspecified foot Erythrocyte Sedimentation Rate Today M25.579 - Pain in unspecified ankle and joints of unspecified foot CRP High Sensitivity Today M25.579 - Pain in unspecified ankle and joints of unspecified foot Comprehensive Vicco. Panel Fast Today R73.01 - Impaired fasting glucose, Z00.00 - Encounter for general adult medical examination without abnormal findings Triiodothyronine T3 Total Today E03.9 - Hypothyroidism, unspecified, R79.89 - Other specified abnormal findings of blood chemistry
[2024-03-09 14:42] VITALS: BP 118/70; PULSE 94; RESP 16; TEMP 36.6; O2SAT 97; BMI 29.2
== END 2024-03-09 15:28 | disposition home or self-care (01) ==
PROVIDERS: PCP Family Medicine; Visit Provider Family Medicine
DX: M54.9 Dorsalgia, unspecified (principal); M54.30 Sciatica, unspecified side; M25.579 Pain in unspecified ankle and joints of unspecified foot

== ENCOUNTER → 2024-03-09 14:22 | Outpatient (BNVA) | payer OTHER, SELFPAY | PROVIDERS: PCP Family Medicine; Visit Provider Family Medicine | DX: M54.9 Dorsalgia, unspecified (principal); M54.30 Sciatica, unspecified side; M25.571 Pain in right ankle and joints of right foot; M25.572 Pain in left ankle and joints of left foot | CPT/HCPCS: 99212 ==

== ENCOUNTER 2024-03-24 11:09 | Outpatient (REF) | payer OTHER, SELFPAY ==
[2024-03-24 12:04] LABS: Estimated Average Glucose 108 mg/dL; Hemoglobin A1C 137.6273 umol/L; Hemoglobin A1c % 5.4 % (<6.0); Total Hemoglobin (HGBA1C) 3823.3891 umol/L
[2024-03-24 12:35] LABS: Erythrocyte Sedimentation Rate 7 MM/HR (0-15)
[2024-03-24 12:48] LABS: HBS Num1 > 1000.00 mIU/mL (0-7.99); HBc Num1 0.09 S/CO (0.00-0.79); Hepatitis B Core Antibody Nonreactive (Nonreactive); Hepatitis B Surface Antigen Negative (Negative); ~HepC Num1 0.08 S/CO (0.00-0.79); ~Hepatitis B Surface Antibody REACTIVE (Nonreactive); ~Hepatitis C Antibody Nonreactive (Nonreactive)
[2024-03-24 12:50] LABS: Alanine Aminotransferase 68 U/L (0-40); Albumin Level 4.7 g/dL (3.5-5.0); Alkaline Phosphatase 76 U/L (39-117); Anion Gap 9 (12-20); Aspartate Amino Transferase 68 U/L (5-37); Bilirubin Total 0.9 mg/dL (0.0-1.0); Blood Urea Nitrogen 16 mg/dL (9-16); Calcium 9.6 mg/dL (8.4-10.2); Carbon Dioxide 28 mmol/L (22-29); Chloride 107 mmol/L (96-108); Estimated Glomerular Filt Rate > 60; Glucose Fasting 84 mg/dL (60-99); Potassium 4.2 mmol/L (3.3-5.1); Sodium 140 mmol/L (135-145); Total Protein 7.9 g/dL (6.5-8.0)
[2024-03-24 13:08] LABS: Free T4 (Free Thyroxine) 0.99 ng/dL (0.71-1.85); Thyroid Stimulating Hormone 1.94 uIU/mL (0.32-4.0); Uric Acid 4.5 mg/dL (3.4-7.0)
[2024-03-25 20:13] LABS: CRP High Sensitivity 2.1 mg/L
[2024-03-25 21:03] LABS: Triiodothyronine T3 Total 107 ng/dL (76-181)
== END 2024-03-24 11:10 | disposition home or self-care (01) ==
LOC: HO.LAB 11:09
PROVIDERS: PCP Family Medicine; Visit Provider Family Medicine
DX: Z00.00 Encounter for general adult medical examination without abnormal findings (principal); R74.8 Abnormal levels of other serum enzymes; Z11.3 Encounter for screening for infections with a predominantly sexual mode of transmission; R73.01 Impaired fasting glucose; E03.9 Hypothyroidism, unspecified; R79.89 Other specified abnormal findings of blood chemistry; M25.579 Pain in unspecified ankle and joints of unspecified foot
CPT/HCPCS: 36415; 80053; 83036; 84439; 84443; 84480; 84550; 85652; 86141; 86704; 86706; 86803; 87340

== ENCOUNTER 2024-03-24 14:00 | Outpatient (RCR) | payer OTHER, SELFPAY ==
--- NOTE | 2023-10-28 15:23 | MHC.PT.EP ---
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 Park on 10/02/23 for history of R sided sciatica following history of sx which ultimately began three months ago with two repeated injuries~ 6 weeks ago. Pt reports onset of R sided sciatica, near constant parathesias radiating into L5/S1 dermatone with three episodes of repeated injury with report of left lateral shift (which resolved on its own). Pt reports seeking acute care registered nurse on/off with limited ocean transportation intermediary gains. Initial injury was deadlifting> then pulling hose to power originator and then most recently which he states did it in was attempting to lift up a zumba instructor when it was on hill to put air in the tire. Pt expresses onset of bladder impairment 6 weeks ago which resulted in ability to urinate while standing (this was not expressed until the end of the appt this date). Pt reports bowel urgency and when he attempts to go is unable to. Pt reports worsening urgency when back pain is more severe. Pt was notified to go to the ED to be evaluated due to concern for cauda equina involvement. Pt's PCP Dr. Park was notified of this history when patient was still in the office post evaluation completion this date and he also advised ER consult. Prior to learning patient was having bladder impairment, pt was trialed with prone lying which did centralize and reduce his sx. He received MHP with TENS application L>R lumbar L4-S1 level via select unit at intensity 4.5 mA with moist heat. We discussed repeated trial of this position for home with or without moist heat x 10-20 minutes short duration to tolerance. He was educated re: importance of not pushing into pain, goal of centralization vs peripheralization, findings of initial evaluation, and goals of PT. Following application of estim/MHP, pt was educated re: standing options such as gentle lumbar extension and gentle lumbar L side-bending as goals for positional change in effort to centralize his sx. It was end of the appt when therapist came to learn of bladder impairment and he was urged to go to the ED for evaluation. Addendum: Therapist called patient after he was DC from the ER. In ER pt underwent xray, was prescribed steroids and was referred to Dr. Lira office for consult, encouarged to continue with PT. Therapist phoned patient to recommend refraining from completing the generic handout of back exercises which were given to him in the ER and focus on the ones which were issued during session this morning (prone lying, trial modified lumbar extension and trial of modified lumbar left sidenbending to tolerance). Educated AP and heel slides were okay as long as no sx worsening in R LE. Pt advised to refrain from cat/camel/SLR, and LBTR stretch as they likely would trigger his sx to to what was observed for movement positional preference noted this morning during his evaluation. Frequency and Duration: The patient will be seen 2x/week x 4 weeks Short Term Goals: 1. Centralize R LE sx to the height of the knee. (IR: Radiating down to the toes/lateral ankle). 2. Reduce presence of back>R LE pain from severe to mild. (IR: severe in both) 3. Educate re: self care/HEP/self management of sx. \ 4. Pt will exhibit neutral/posture in standing with no presence of lateral shift/lean. Fire Official Goals: 1. I HEP program with no presence of R LE sx. 2. Strength R hip extensors 5/5. (IR: R LE sx 3/5 pain in lumbar). 3. Strength R great toe ext to 5/5. (IR; 4+/5 on R, vs L 5/5). 4. Demonstrate functional squat with good symmetry. (IR: Poor squat ability radiating pain to R lateral calf/ankle). 5. Pt will resume workout program with good body mechanics safety. 6. Pt will demonstrate R LE SLS to 10 seconds, (IR: L LE <5 seconds due to reports R sided back pain, R LE 2 seconds severe pain in back). 7. Centralize sx to midline with back pain <2/10 with ADLS/IADLS/ recreational exercise. Treatment Plan: Modalities to reduce pain, spasms and effusion. Manual therapy to restore motion and function. Therapeutic exercise to improve strength and flexibility. Neuromuscular re-education for posture and balance. Therapeutic activities to return to functional activities of daily living. Electronically signed by: Ratna Gutierrez, PT, DPT Please sign and return to therapist. Thank you for your referral.
== END 2024-04-20 07:45 | disposition home or self-care (01) ==
LOC: HO.PTWFD 14:00
PROVIDERS: PCP Family Medicine; Visit Provider Family Medicine
DX: M54.30 Sciatica, unspecified side (principal)
CPT/HCPCS: 97014; 97110; 97140; 97162; 97164; 97535

== ENCOUNTER 2024-04-02 11:08 | Outpatient (AMB) | payer OTHER, SELFPAY ==
--- NOTE | 2024-04-02 10:41 | A.OFFPC_ITS ---
Intake Visit Reasons: f/u labs Intake Note: lab review Allergies No Known Allergies [No Known Allergies*] Allergy (Verified 04/02/24 10:42) Tobacco use date assessed: 07/31/23 Dental Screening Dental Screen Date: 07/09/23 HPI f/u labs HPI Details 39 y/o male presents to f/u labs via tel emedicine. Labs drawn 03/24/24. Reviewed labs with pt. Elevated liver enzymes - AST 68, ALT 68. HPI Comments History of Present Illness Details Documentation assistance for Deric Park MD, was provided by Fish Ferrell,? Medical Imaging Director on 04/02/2024 at 12:37 PM EST. I, Dr. Park, have read, observed, and verified documentation. 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 Homero Shepard, Rosaura Hernandez, Edilberto Shane and colleagues, with an educational josephine from [employer]. Review of Systems Const Denies chills, Denies fatigue, Denies fever(s), Denies headache(s) and Denies weakness ENT Denies dizziness and Denies headache(s) Card Denies dyspnea Resp Denies cough, Denies dyspnea, Denies wheezing and Denies other (shortness of breath) Musc Denies numbness and Denies tingling Neuro Denies dizziness, Denies headache(s), Denies numbness, Denies tingling and Denies weakness Psych Denies anxiety and Denies depression Endo Denies fatigue Aller/Immun Denies wheezing Physical exam (Primary Care) Tobacco/Smoking Status: Tobacco use Status Tobacco use date assessed 07/31/23 04/02/24 10:43 Patient Tobacco Use Status Never used Tobacco 04/02/24 10:43 e-Cigarette/Vaping Use Never Used 04/02/24 10:43 Thrive Assessment: Date of Thrive Assessment Date Thrive assessed 01/09/24 04/02/24 10:43 Telehealth Telehealth Telehealth Platform: Telephone Location of provider rendering services: practice address Location of patient: address on file Patient Identification confirmed using: Name, : Yes Telehealth method: voice only Patient verbally consented to treatment: Yes Patient verbally consented to billing insurance company: Yes Patient informed of any privacy concerns related to visit: Yes Minutes spent on Phone/Video with Pt.: 10 Coding Level of Care Code Tele Est Pt Level 2 (74092) Diagnoses Elevated liver enzymes R74.8 Assessment & Plan Assessment & Plan (1) Elevated liver enzymes: Code(s): R74.8 - Abnormal levels of other serum enzymes Category: Medical Plan: Ongoing?elevated?liver?enzymes. Ultrasound?last?year?did?not?show?any?mass.??Did?show?hep atic?steatosis?and?hepatomegaly. Elastography?was?above?normal?range?though?did?not?qualify?as advanced?chronic?liver?disease. He?has?been?working?on?weight?loss.??He?is?hydrating?well. Avoiding?Tylenol?and?alcohol Hepatitis-B?and?C?testing?is?negative Referring?him?to?Gastroenterology Orders: Orders Comprehensive [place]. Panel Fast Today R74.8 - Abnormal levels of other serum enzymes, Z00.00 - Encounter for general adult medical examination without abnormal findings Microalbumin, Random (w Creat) Today I10 - Essential (primary) hypertension Referrals Gastroenterology Referral R16.0 - Hepatomegaly, not elsewhere classified, R74.8 - Abnormal levels of other serum enzymes
== END 2024-04-02 17:05 | disposition home or self-care (01) ==
LOC: HO.HMCFM 11:08
PROVIDERS: PCP Family Medicine; Visit Provider Family Medicine
DX: R74.8 Abnormal levels of other serum enzymes (principal)

== ENCOUNTER → 2024-04-02 11:08 | Outpatient (BNVA) | payer OTHER, SELFPAY | PROVIDERS: PCP Family Medicine; Visit Provider Family Medicine ==

== ENCOUNTER 2024-06-15 06:35 | Outpatient (REF) | payer OTHER, SELFPAY ==
[2024-06-15 07:25] LABS: Alanine Aminotransferase 40 U/L (0-40); Albumin Level 4.3 g/dL (3.5-5.0); Alkaline Phosphatase 74 U/L (39-117); Anion Gap 10 (12-20); Aspartate Amino Transferase 31 U/L (5-37); Bilirubin Total 0.3 mg/dL (0.0-1.0); Blood Urea Nitrogen 19 mg/dL (9-16); Calcium 9.2 mg/dL (8.4-10.2); Carbon Dioxide 29 mmol/L (22-29); Chloride 106 mmol/L (96-108); Estimated Glomerular Filt Rate > 60; Glucose Fasting 98 mg/dL (60-99); Potassium 4.2 mmol/L (3.3-5.1); Sodium 141 mmol/L (135-145); Total Protein 7.3 g/dL (6.5-8.0)
[2024-06-15 07:33] LABS: Microalbumin Urine < 5.0 mg/L
== END 2024-06-15 06:36 | disposition home or self-care (01) ==
LOC: HO.LAB 06:35
PROVIDERS: PCP Family Medicine; Visit Provider Family Medicine
DX: Z00.00 Encounter for general adult medical examination without abnormal findings (principal); R74.8 Abnormal levels of other serum enzymes; I10 Essential (primary) hypertension
CPT/HCPCS: 36415; 80053; 82570

== ENCOUNTER 2024-06-17 15:06 | Outpatient (AMB) | payer OTHER, SELFPAY ==
--- NOTE | 2024-06-17 15:12 | A.OFFVIS_ITS ---
Vital Signs 06/17/24 15:13 Height 5 ft 9 in Weight 188 lb BMI 27.8 BP 104/80 Blood Pressure Location Lt brachial Position Sitting Pulse 99 Pulse Source Pulse Oximeter Pulse Oximetry (%) 97 Oxygen Delivery Method Room Air Intake Visit Reasons: Sciatic nerve pain from previous injury Orthodontic Technician Required: No Allergies No Known Allergies [No Known Allergies*] Allergy (Verified 06/17/24 15:14) HPI Comments Details: The patient is a 39-year-old male with a history of chronic lower back pain and lumbar radiculopathy exacerbated by recent activity changes. Approximately two weeks ago, the patient began a new job requiring repetitive bending, leading to increased lower back pain initially mitigated by rest from gym workouts. After resuming these activities, the patient?s symptoms worsened due to heavy lifting and stretching activities, as well as lifting a heavy bag. Pain improved slightly over the past two days with decreased activity and use of medications such as muscle relaxants and Celecoxib. The patient also received an epidural steroid injection five months prior, which had been beneficial. Prior: Patient presents back to the office today for follow-up, 1 month status post right L4-5 transforaminal epidural steroid injection Initially he felt 80% relief of pain with improvement in functional mobility This lasted for about 1 month, he then started walking on the treadmill in using the stationary bike at the gym. Since then he has been suffering with increasing lower back pain. Denies any red flag symptoms including loss of bowel, bladder or saddle anesthesia. Prior: Patient presents back to the office today for follow-up right lower back pain, review recent MRI MRI reviewed, results as per below Patient continues with right lower back pain with radiation down the right leg to the foot Endorses some burning, numbness and discomfort in the right foot with extensive sitting or driving Denies red flag symptoms including new loss of bowel, bladder or saddle anesthesia - Onset many years. - Quality: Constant aching pain in lower back, described as a punching sensation in the buttock area. - Primary Location: Lumbar region with radiation to the buttock and intermittent radiation down the leg. - Aggravating Factors: Bending, heavy lifting, and prolonged sitting. - Alleviating Factors: Rest, physical therapy exercises, muscle relaxants, and Celecoxib. 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 - Affect: Patient experiences frustration due to ongoing pain, impacting daily functioning. - Analgesia: Current medications include muscle relaxants and Celecoxib with noted improvement in symptoms. Prednisone prescribed, not yet taken. 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 - Aberrant Drug Related Behaviors: None reported, medications taken as prescribed. Prior: Selvin is a very pleasant 38-year-old male who presents to the office today for evaluation management of his chronic lower back pain Reports right lower back pain with radiation down the right leg to the level of the foot Has been suffering with this pain for many years. Approximately 8 weeks ago re- injured after lifting the lawnmower At that time pain was 9/10, he was having some numbness in his leg and urinary retention. He was given prednisone which resolved the bladder symptoms and improved his pain. He has been taking nonsteroidal anti-inflammatory medications and Tylenol with minimal improvement Cyclobenzaprine provides some relief but pain persists He attempted physical therapy but it caused worsening symptoms that resulted in a trip to the emergency room In the past he has found relief with chiropractor but this time has persisted despite all attempts at conservative therapy Recent x-ray was reviewed, results as per below MRI has been ordered and tor day is pending Denies red flag symptoms including new loss of bowel, bladder or saddle anesthesia Pain today is rated as 5/10, worse in the mornings and the evenings In terms of muscle damage condition is described as aching, hot, burning, tingling, shooting, dull, numb, pins and needles Pain is negatively impacting patient's enjoyment of life, general activity, mood , normal work, recreational activities, sleep ER visit 10/28/23: 38 yo male with history of sciatica, HTN, HLD who presents to the ER for evaluation of ongoing back pain for the last 6 weeks. Patient saw his PCP on October 01 and was ordered cyclobenzaprine and physical therapy. The plan was to obtain imaging if no improvement in his symptoms. Patient has a history of repeat trauma and injury to his lower back, first starting about 2-3 years ago when lifting and noticed severe back pain in which he went to a chiropractor and seemed to fix the problem. 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 Most recently about 6 weeks ago, patient bent down to fixed tire of advertising project manager when he felt severe pain in his lower right back. Patient again went to chiropractor, but the pain persisted. He most recently went to his PCP about 4 weeks ago due to this pain, where he was prescribed cyclobenzaprine, high dose ibuprofen and physical therapy. States pain is radiating from his right hip and radiating down his leg, and that he is having a difficult time walking long distances or laying flat due to pain. Patient also endorses a new onset numbness, tingling down the right lateral leg occurring in the last 2 weeks. States the there is also a burning and pain shooting down his leg from his hip area. He endorses having bladder symptoms as well, stating that he continues to feel fullness in his bladder, like he has to pee but when he goes to urinate there is no urine. Patient states that he can not stand to pee, and needs to sit down in order to urinate. He denies any saddle anaesthesia, urinary incontinence and bowel incontinence. Was recetnyl doing a lot of walking this past weekend and states that the pain was significantly worse. 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 States that when sitting he is fine, however laying flat or standing or dangling his legs over the edge of the bed/chair causes severe pain down his right leg including tingling and burning sensation on the lateral side of his right leg. 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 Physical Exam Vital Signs: Last Vital Signs Pulse 99 06/17/24 15:13 BP 104/80 06/17/24 15:13 Pulse Ox 97 06/17/24 15:13 Oxygen Delivery Method Room Air 06/17/24 15:13 BMI result Body Mass Index 27.8 General: awake, alert, oriented. Answers questions appropriately. Fully engaged in examination. Skin: warm, dry, intact HEENT: Normocephalic. Hearing intact. Cardiac: External chest normal in appearance. Respiratory: No cough, audible wheezing or stridor. Abdomen: without gross distension. MS: No obvious swelling or deformities. Neurological: Oriented to person, place, time and situation. Thought process intact. No gait abnormalities appreciated. Psychiatric: Appropriate mood and affect. Good judgment and insight. Results Reviewed Results Reviewed: 11/24/23 MRI lumbar spine Sagittal Alignment: There is 2 mm of retrolisthesis at L4-L5 with otherwise normal lumbosacral alignment. Lumbosacral Junction: Normal. There are 5 [id number] lumbar-type vertebral bodies. Vertebral Bodies: Vertebral body heights are well maintained. Disc Spaces and Endplates: Mild disc volume loss is noted at L3-L4 with loss of intradiscal T2 weighted signal consistent with mild degenerative change. There is loss of intradiscal T2 weighted signal at L4-L5 consistent with disc degenerative change. Endplates appear grossly intact. There is no significant spondylosis. Spinal Canal: No abnormal developmental findings. Bone Marrow: No suspicious marrow-replacing process or bone marrow edema. Partially imaged small benign vertebral hemangioma in the T11 vertebral body noted. Conus Medullaris: Terminates at T12-L1. Morphology and signal is normal. Intradural Nerve Roots: Within normal limits. L5-S1: Normal annular contour. No significant facet joint arthrosis, canal or neural foraminal stenosis. L4-L5: Broad-based [id number] subarticular disc protrusion with annular fissuring and underlying minor annular bulging, with mild encroachment on the ventral thecal sac asymmetric to the right. There is a 5 mm caudally migrated extruded fragment on the right encroaching on the right lateral recess and traversing right L5 nerve root, best visualized on image 19 of series 8. Minor facet joint hypertrophic degenerative change is noted on the right. There is no significant central canal or neural foraminal stenosis. L3-L4: Minor annular bulging noted with slight flattening of the ventral thecal sac. Minor facet hypertrophic changes are noted. There is no significant canal or neural foraminal stenosis. L2-L3: Normal aortic contour. No facet joint arthrosis, canal or foraminal stenosis. L1-L2: Normal aortic contour. No facet joint arthrosis, canal or foraminal stenosis. Paravertebral and Included Extraspinal Soft Tissues: Incidental note is made of a horseshoe kidney, which is an anatomic variant. The paravertebral soft tissues are otherwise unremarkable in appearance. IMPRESSION: 1. Discogenic degenerative changes at L4-L5 with a broad-based central to right subarticular disc protrusion with a small caudally migrated extruded fragment on the right encroaching on the traversing right L5 nerve root. 2. Minor annular bulging at L3-L4 with minor facet hypertrophic changes. 3. 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 10/28/23 XR/XR lumbar spine 2-3V FINDINGS: Normal vertebral body alignment. No acute fracture or subluxation. The lumbar lordosis is maintained. No loss of vertebral body height. Mild loss of intervertebral disc height with tiny endplate osteophytes at L3-S1. No concerning lytic or blastic osseous lesion. Phleboliths within the pelvis. IMPRESSION: Mild degenerative disc disease at L3-S1. Assessment & Plan Assessment & Plan (1) Lumbar radiculopathy: Code(s): M54.16 - Radiculopathy, lumbar region Category: Medical Plan To manage the exacerbated chronic lower back pain and lumbar radiculopathy, I recommend continued use of Celecoxib as it has shown effectiveness. The patient's medication plan includes muscle relaxants as needed for spasms. Prednisone is on hand for potential flare-ups, to be used sparingly. Physical therapy remains crucial for maintaining mobility without exacerbating pain; the patient should avoid activities such as heavy lifting. Repeat L4-5 epidural steroid injection may be scheduled if symptoms of lumbar radiculopathy worsen. The patient is encouraged to contact for further pain management if symptoms intensify. During the discussion with the patient, lumbar radiculopathy was identified as the primary issue exacerbating his chronic lower back pain. We reviewed the effectiveness of past interventions like Celecoxib and muscle relaxants, which have alleviated symptoms, discussing how Prednisone may be reserved for severe flare-ups. The patient was informed about the option of a repeat epidural steroid injection at L4-5 if future symptoms intensify, with reminders of the associated risks and benefits. I educated the patient on activity modifications to prevent symptom exacerbation and advised maintaining engagement in physical therapy, emphasizing personalized exercises to enhance mobility without triggeri ng additional pain. Follow-up plans include symptomatic management, with options for intervention if symptoms progress. Patient was informed and verbally consented to the use of an ambient scribe for clinic note documentation during this visit. Patient Instructions: - Continue taking Celecoxib and muscle relaxants as needed for pain. - Avoid heavy lifting and activities that worsen symptoms. - Engage in gentle physical therapy exercises and stretching. - [place] Prednisone for severe pain flare-ups as discussed. - Consider scheduling an L4-5 epidural steroid injection if symptoms worsen. - Contact for follow-up if pain increases or becomes difficult to manage. - Maintain open communication for further advice or changes in pain management. Coding Level of Care Code Est Pt Level 3 (71023) Complex EM visit Add On G2211 Diagnoses Lumbar radiculopathy M54.16
[2024-06-17 15:13] VITALS: BP 104/80; PULSE 99; O2SAT 97; BMI 27.8
== END 2024-06-17 15:46 | disposition home or self-care (01) ==
LOC: HO.PMC 15:07
PROVIDERS: PCP Family Medicine; Visit Provider Registered Nurse Emergency
DX: M54.16 Radiculopathy, lumbar region (principal)
CPT/HCPCS: 99213; G2211

== ENCOUNTER → 2024-06-17 15:06 | Outpatient (BNVA) | payer OTHER, SELFPAY | PROVIDERS: PCP Family Medicine; Visit Provider Registered Nurse Emergency | DX: M54.16 Radiculopathy, lumbar region (principal) | CPT/HCPCS: 99212 ==

== ENCOUNTER 2024-06-24 12:55 | Outpatient (AMB) | payer OTHER, SELFPAY ==
--- NOTE | 2024-06-24 13:00 | MHC.OFFVIS ---
Vital Signs 06/24/24 13:01 Height 5 ft 9 in Weight 187 lb 6.287 oz BMI 27.7 BP 141/71 H Blood Pressure Location Lt brachial Position Sitting Pulse 104 H Intake Visit Reasons: Abn levels serum Enzymes & Hepatomegaly Intake Note: Selvin presents in the office as a new patient for Elevated LFTs. CC: He states he was sent because his liver enzymes - he had his blood work done last week and he states it looks like everything is back to normal. He noticed that after losing a lot of wait he has a bulge in the right flank region. He states he was concerned it was near his liver. He states he is 10 years sober of drugs but he never was a drinker. Instructional Services Specialist Required: No Allergies No Known Allergies [No Known Allergies*] Allergy (Verified 06/24/24 13:02) HPI Comments Details: 39 y.o M with PMH of who is here for elevated LFTs Reports no abd pain, N,V,D. 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 Now sober. Hep serologies negative. No HLD, no diabetes. Does take a creatine supplement. Also looking into peptide therapy. Reports almost 40 lbs in the past 6 months. No fam hx of liver disease or liver cancer. 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 Current occupational exposures/hazards: No Cognitive needs: No Hearing needs: No Vision needs: No Review of Systems Const All systems reviewed & are unremarkable except as noted in HPI and below Physical Exam Vital Signs: Last Vital Signs Pulse 104 H 06/24/24 13:01 BP 141/71 H 06/24/24 13:01 BMI result Body Mass Index 27.7 No apparent distress Nonicteric Abdomen soft, nondistended Alert and oriented x3, normal gait Assessment & Plan Assessment & Plan (1) Hepatomegaly: Code(s): R16.0 - Hepatomegaly, not elsewhere classified Category: Medical (2) Elevated fasting blood sugar: Code(s): R73.01 - Impaired fasting glucose Category: Medical (3) Elevated liver enzymes: Code(s): R74.8 - Abnormal levels of other serum enzymes Category: Medical Plan Likely 2/2 MAFLD/MASH. Had BMI > 30 but now s/p 40 lbs weight loss. Lipids better. Not prediabetic. Most recent LFTs normal. Likely 2/2 lifestyle mods and weight reduction. Does not drink etOH. Hep serologies negative. Has low Fib 4 of 0.67. Plan: -Will check US Abd. -Based on fib 4 score of 0.67 and absence of other risk factors (such as T2DM, age >50, BMI >50,) patient falls under low risk for progression, and therefore this time is being discharged back to PCP's care for obesity management and prevention of cardiovascular disease. Follow up PRN Orders: Orders US abdomen complete 06/24/24 R16.0 - Hepatomegaly, not elsewhere classified Coding Level of Care Code New Pt Level 4 (90579) Diagnoses Hepatomegaly R16.0 Elevated fasting blood sugar R73.01 Elevated liver enzymes R74.8
[2024-06-24 13:01] VITALS: BP 141/71; PULSE 104; BMI 27.7
== END 2024-06-24 13:32 | disposition home or self-care (01) ==
LOC: HO.HGI 12:56
PROVIDERS: PCP Family Medicine; Visit Provider Internal Medicine
DX: R16.0 Hepatomegaly, not elsewhere classified (principal); R73.01 Impaired fasting glucose; R74.8 Abnormal levels of other serum enzymes
CPT/HCPCS: 99204

== ENCOUNTER → 2024-06-24 12:55 | Outpatient (BNVA) | payer OTHER, SELFPAY | PROVIDERS: PCP Family Medicine; Visit Provider Internal Medicine | DX: R16.0 Hepatomegaly, not elsewhere classified (principal); R73.01 Impaired fasting glucose; R74.8 Abnormal levels of other serum enzymes | CPT/HCPCS: 99202 ==

== ENCOUNTER 2024-07-16 08:29 | Outpatient (AMB) | payer OTHER, SELFPAY ==
--- NOTE | 2024-07-16 08:36 | A.OFFPC_ITS ---
Vital Signs 07/16/24 08:41 Height 5 ft 9 in Weight 182 lb BMI 26.9 BP 121/77 Blood Pressure Location Rt brachial Position Sitting Respiration 16 Pulse 79 Pulse Source Pulse Oximeter Temp 97.6 F Temp Source Oral Pulse Oximetry (%) 98 Oxygen Delivery Method Room Air Intake Visit Reasons: f/u HTN, elevated fasting glucose Intake Note: patient here for follow up on HTN and elevated fasting glucose Rat Trapper Required: No Allergies No Known Allergies [No Known Allergies*] Allergy (Verified 07/16/24 08:40) Medication List - Last Reconciled 07/16/24 by Deric Park MD celecoxib 200 mg PO BID PRN 30 days cyclobenzaprine 10 mg PO TID PRN Tobacco use date assessed: 07/16/24 Dental Screening Dental Screen Date: 07/16/24 Did you have a dental visit in the last 12 months?: Yes Did you have a dental problem in the last 6 months where you did not have access to dental care?: No Was dental information given to patient?: Patient has dentist HPI f/u HTN, elevated fasting glucose HPI Details 39 y/o male presents to f/u HTN, labs. Labs drawn 06/15/24. Reviewed labs with pt. Liver enzymes improved - AST 31, ALT 40. A1c 5.3%. Blood pressure today 121/77, 79p. Pt notes he has been going to the gym everyday, which has been helping with his back pain. He continues to use cyclobenzaprine for his flare-ups. 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 Homero Shepard, Rosaura Hernandez, Edilberto Shane and colleagues, with an educational josephine from [employer]. Review of Systems Const Denies chills, Denies fatigue, Denies fever(s), Denies headache(s) and Denies weakness ENT Denies dizziness and Denies headache(s) Card Denies dyspnea Resp Denies cough, Denies dyspnea, Denies wheezing and Denies other (shortness of breath) Musc Denies numbness and Denies tingling Neuro Denies dizziness, Denies headache(s), Denies numbness, Denies tingling and Denies weakness Psych Denies anxiety and Denies depression Endo Denies fatigue Aller/Immun Denies wheezing Physical exam (Primary Care) Vital Signs: Last Vital Signs Temp 97.6 F 07/16/24 08:41 Pulse 79 07/16/24 08:41 Resp 16 07/16/24 08:41 BP 121/77 07/16/24 08:41 Pulse Ox 98 07/16/24 08:41 Oxygen Delivery Method Room Air 07/16/24 08:41 BMI result Body Mass Index 26.9 Tobacco/Smoking Status: Tobacco use Status Tobacco use date assessed 07/16/24 07/16/24 08:44 Patient Tobacco Use Status Never used Tobacco 07/16/24 08:39 e-Cigarette/Vaping Use Never Used 07/16/24 08:39 Thrive Assessment: Date of Thrive Assessment Date Thrive assessed 01/09/24 07/16/24 08:39 Const General: well developed; No acute distress Nutritional Appearance: well nourished Orientation/consciousness: patient oriented x3 HENMT Head: Yes normocephalic and Yes atraumatic Eyes General: appearance normal, both eyes and all related structures Pupils: Equal, round and reactive pupils present EOM: EOMs intact bilaterally Resp Effort & Inspection: normal respiratory effort Auscultation: clear to auscultation bilaterally Cardio Rate: regular rate Rhythm: regular rhythm Heart sounds: S1 normal heart sound present, S2 normal heart sound present, no gallops, no murmurs and no rubs Neuro General: patient oriented x3 and gait normal Cranial nerves: Yes Equal, round and reactive pupils present Psych Affect: normal affect Coding Level of Care Code Est Pt Level 4 (37809) Diagnoses Hypertension I10 Elevated fasting blood sugar R73.01 Elevated liver enzymes R74.8 Hepatomegaly R16.0 Back pain M54.9 Hypercholesterolemia E78.00 Assessment & Plan Assessment & Plan (1) Hypertension: Code(s): I10 - Essential (primary) hypertension Category: Medical Plan: Blood?pressure?is well?controlled?with?diet?alone.??Goal?is?less?than?140/90 He?continues?to?lose?weight?and?I?encouraged?this (2) Elevated fasting blood sugar: Code(s): R73.01 - Impaired fasting glucose Category: Medical Plan: Most?recent?A1c?5.3%.??Improving Most?recent?fasting?blood?sugar?is?within?range Continue?weight?loss?and?exercise (3) Elevated liver enzymes: Code(s): R74.8 - Abnormal levels of other serum enzymes Category: Medical Plan: Most?recent?set?of?liver?enzymes?are?within?range?as?patient?continues?lose?weig ht Was?seen?by?Gastroenterology.??Getting?abdominal?ultrasound Continue?good?hydration?and?weight?loss.??Patient?does?not?drink?alcohol. (4) Hepatomegaly: Code(s): R16.0 - Hepatomegaly, not elsewhere classified Category: Medical Plan: As above (5) Back pain: Code(s): M54.9 - Dorsalgia, unspecified Category: Medical Plan: Much?improved?with?physical?therapy Continue?exercises?learned?in?physical?therapy Will?give?another?script?for?celecoxib?and?cyclobenzaprine Encouraged?him?to?wean?off?these?and?use?them?only?intermittently?with?flare- ups. (6) Hypercholesterolemia: Code(s): E78.00 - Pure hypercholesterolemia, unspecified Category: Medical Plan: Had?elevated?LDL?at?last?check?in?October?2023 He?has?been?losing?weight?consistently Rechecking?lipids Orders: Orders Lipid Panel Today E78.00 - Pure hypercholesterolemia, unspecified, Z00.00 - Encounter for general adult medical examination without abnormal findings Hemoglobin A1c Today R73.01 - Impaired fasting glucose Comprehensive [place]. Panel Fast Today R74.8 - Abnormal levels of other serum enzymes, Z00.00 - Encounter for general adult medical examination without abnormal findings Medications: Refilled celecoxib 200 mg PO BID 30 days PRN 60 caps 1RF pain cyclobenzaprine 10 mg PO TID PRN 90 tabs 1RF muscle spasm
[2024-07-16 08:41] VITALS: BP 121/77; PULSE 79; RESP 16; TEMP 36.4; O2SAT 98; BMI 26.9
== END 2024-07-16 09:11 | disposition home or self-care (01) ==
LOC: HO.HMCFM 08:29
PROVIDERS: PCP Family Medicine; Visit Provider Family Medicine
DX: I10 Essential (primary) hypertension (principal); R73.01 Impaired fasting glucose; R74.8 Abnormal levels of other serum enzymes; R16.0 Hepatomegaly, not elsewhere classified; M54.9 Dorsalgia, unspecified; E78.00 Pure hypercholesterolemia, unspecified

== ENCOUNTER → 2024-07-16 08:29 | Outpatient (BNVA) | payer OTHER, SELFPAY | PROVIDERS: PCP Family Medicine; Visit Provider Family Medicine | DX: I10 Essential (primary) hypertension (principal); R73.01 Impaired fasting glucose; R74.8 Abnormal levels of other serum enzymes; M54.9 Dorsalgia, unspecified; E78.00 Pure hypercholesterolemia, unspecified | CPT/HCPCS: 99212 ==

== ENCOUNTER 2024-07-23 09:19 | Outpatient (REF) | payer OTHER, SELFPAY | END 2024-07-23 09:20 | disposition home or self-care (01) | LOC: HO.LAB 09:19 | PROVIDERS: Visit Provider Family Medicine | DX: Z13.89 Encounter for screening for other disorder (principal) ==

== ENCOUNTER 2024-08-28 11:53 | Outpatient (REF) | payer OTHER, SELFPAY ==
--- NOTE | ~2024-08-28 | US_ITS ---
CLINICAL HISTORY: R16.0 - Hepatomegaly, not elsewhere classified US abdomen complete Comparison: None Findings: The visualized pancreas is normal. The aorta and inferior vena cava are normal caliber. The liver is normal in size and echotexture. There is no intrahepatic bile duct dilatation. The common duct is 3 mm in diameter. The gallbladder is normal. There is no sonographic Shaikh sign. The main portal vein is antegrade. The right kidney is 9.3 cm in length. The left kidney is 10.3 cm in length. No hydronephrosis. The spleen is normal. No ascites. IMPRESSION: 1. Normal complete abdominal ultrasound. This document has been electronically signed by: Hunter Wright MD on 08/28/2024 18:16:18
== END 2024-08-28 11:54 | disposition home or self-care (01) ==
LOC: HO.US 11:53
PROVIDERS: PCP Family Medicine; Visit Provider Internal Medicine
DX: R16.0 Hepatomegaly, not elsewhere classified (principal)
CPT/HCPCS: 76700

== ENCOUNTER → 2024-08-28 11:57 | Outpatient (BNV) | payer OTHER, SELFPAY | PROVIDERS: PCP Family Medicine; Visit Provider Radiology Diagnostic Radiology | DX: R16.0 Hepatomegaly, not elsewhere classified (principal) | CPT/HCPCS: 76700 ==

== ENCOUNTER 2024-08-31 07:31 | Outpatient (REF) | payer OTHER, SELFPAY ==
[2024-08-31 11:32] LABS: Estimated Average Glucose 105 mg/dL; Hemoglobin A1c % 5.3 % (<6.0)
[2024-08-31 11:47] LABS: Albumin Level 4.5 g/dL (3.5-5.0); Alkaline Phosphatase 68 U/L (39-117); Anion Gap 9 (12-20); Aspartate Amino Transferase 40 U/L (5-37); Bilirubin Total 0.6 mg/dL (0.0-1.0); Blood Urea Nitrogen 17 mg/dL (9-16); Calcium 9.3 mg/dL (8.4-10.2); Carbon Dioxide 28 mmol/L (22-29); Chloride 107 mmol/L (96-108); Cholesterol 179 mg/dL (<200); Estimated Glomerular Filt Rate > 60; Glucose Fasting 96 mg/dL (60-99); HDL Cholesterol 61 mg/dL (>40); LDL Cholesterol Calculated 110 mg/dL (<100); Potassium 4.2 mmol/L (3.3-5.1); Sodium 140 mmol/L (135-145); Total Protein 7.4 g/dL (6.5-8.0); Triglycerides 40 mg/dL (<150)
[2024-08-31 12:06] LABS: Alanine Aminotransferase 54 U/L (0-40)
[2024-08-31 14:20] LABS: Appearance Urine Clear; Color Urine Yellow; Glucose Urine UA Negative (Negative); Leukocyte Esterase Urine Negative (Negative); Nitrite Urine Negative (Negative); Urine Blood Negative (Negative); Urine Ketones Negative (Negative); Urine Protein Negative (Neg-Trace)
== END 2024-08-31 07:32 | disposition home or self-care (01) ==
LOC: HO.WFDLDS 07:31
PROVIDERS: Nurse Practitioner Family; Visit Provider Family Medicine
DX: Z00.00 Encounter for general adult medical examination without abnormal findings (principal); E78.00 Pure hypercholesterolemia, unspecified; R74.8 Abnormal levels of other serum enzymes; R73.01 Impaired fasting glucose
CPT/HCPCS: 36415; 80053; 80061; 81003; 83036

== ENCOUNTER 2024-10-06 08:44 | Outpatient (AMB) | payer OTHER, SELFPAY ==
--- NOTE | 2024-10-06 08:47 | A.OFFPC_ITS ---
Vital Signs 10/06/24 08:51 Height 5 ft 9 in Weight 180 lb 2 oz BMI 26.6 BP 120/80 Blood Pressure Location Lt brachial Position Sitting Respiration 14 Pulse 92 Pulse Source Pulse Oximeter Temp 98.0 F Temp Source Oral Pulse Oximetry (%) 97 Oxygen Delivery Method Room Air Intake Visit Reasons: f/u lipids, labs Intake Note: patient is scheduled for follow up lab review Debt Recovery Officer Required: No Allergies No Known Allergies (No Known Allergies*) Allergy (Verified 10/06/24 08:50) Medication List - Last Reconciled 10/06/24 by Deric Park MD celecoxib 200 mg PO BID PRN 30 days cyclobenzaprine 10 mg PO TID PRN Tobacco use date assessed: 07/16/24 Dental Screening Dental Screen Date: 07/16/24 HPI f/u lipids, labs HPI Details 39 y/o male presents to f/u lipids, labs . Blood pressure today 120/80, 92p. Labs drawn 08/31/24. Reviewed labs with pt. Elevated liver enzymes - AST 40, ALT 54. Triglycerides 40. TC 179. LDL 110. HDL 61. 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 1. Little interest or pleasure in doing things: not at all 2. Feeling down, depressed, or hopeless: not at all 3. Trouble falling or staying asleep, or sleeping too much: not at all 4. Feeling tired or having little energy: not at all 5. Poor appetite or overeating: not at all 6. Feeling bad about yourself - or that you are a failure or have let yourself or your family down: not at all 7. Trouble concentrating on things, such as reading the newspaper or watching television: not at all 8. Moving or speaking so slowly that other people could have noticed. Or the opposite - being so fidgety or restless that you have been moving around a lot more than usual: not at all 9. Thoughts that you would be better off or of hurting yourself in some way: not at all Total score: 0 Source: Developed by Drs. Homero Shepard, Rosaura Hernandez, Edilberto Shane and colleagues, with an educational josephine from [employer]. Thrive Questionnaire Date Thrive assessed: 01/09/24 I am a: Patient What is your living situation today?: I have a steady place to live Within the past 12 months, did the food you bought not last and you didn't have the money to get more?: Often true Within the past 12 months, did you worry whether your food would run out before you got money to buy more?: Never true Do you have trouble paying for medicines?: No Do you have trouble getting transportation to medical appointments?: No Do you have trouble paying your heating and electricity bill?: No Do you have trouble taking care of your child, family member or friend?: No Do you have trouble with day-to-day activities such as bathing, preparing meals, shopping, managing finances, etc.?: No Are you currently unemployed and looking for a job?: No Are you interested in more education?: No Please select the resources that you would like help with: None Currently or been in a relationship where the following occur: No concerns reported THRIVE Score: 1 AUDIT C Alcohol Use Questionnaire (AUDIT-C) 1. How often do you have a drink containing alcohol?: Never Total Score: 0 ALLIE-7 AMB Questionnaire ALLIE-7 Date ALLIE - 7 assessed: 07/09/23 Feeling nervous, anxious, or on edge: 0 = Not at all Not being able to stop or control worryin = Not at all Worrying too much about different things: 0 = Not at all Trouble relaxin = Not at all Being so restless that it is hard to sit still: 0 = Not at all Becoming easily annoyed or irritable: 0 = Not at all Feeling afraid as if something awful might happen: 0 = Not at all Total ALLIE-7 score (0-4 normal; 5-9 mild; 10-14 moderate; 15-21 severe): 0 Source: Developed by Drs. Homero Shepard, Rosaura Hernandez, Edilberto Shane and colleagues, with an educational josephine from [employer]. Review of Systems Const Denies chills, Denies fatigue, Denies fever(s), Denies headache(s) and Denies weakness ENT Denies dizziness and Denies headache(s) Card Denies dyspnea Resp Denies cough, Denies dyspnea, Denies wheezing and Denies other (shortness of breath) Musc Denies numbness and Denies tingling Neuro Denies dizziness, Denies headache(s), Denies numbness, Denies tingling and Denies weakness Psych Denies anxiety and Denies depression Endo Denies fatigue Aller/Immun Denies wheezing Physical exam (Primary Care) Vital Signs: Last Vital Signs Temp 98.0 F 10/06/24 08:51 Pulse 92 10/06/24 08:51 Resp 14 10/06/24 08:51 BP 120/80 10/06/24 08:51 Pulse Ox 97 10/06/24 08:51 Oxygen Delivery Method Room Air 10/06/24 08:51 BMI result Body Mass Index 26.6 Tobacco/Smoking Status: Tobacco use Status Tobacco use date assessed 07/16/24 10/06/24 08:48 Patient Tobacco Use Status Never used Tobacco 10/06/24 08:48 e-Cigarette/Vaping Use Never Used 10/06/24 08:48 PHQ-9: PHQ-9 Score PHQ-9: Total score 0 10/06/24 09:08 Thrive Assessment: Date of Thrive Assessment Date Thrive assessed 01/09/24 10/06/24 08:48 Currently or been in a relationship where the following occur: No concerns reported Const General: well developed; No acute distress Nutritional Appearance: well nourished Orientation/consciousness: patient oriented x3 HENMT Head: Yes normocephalic and Yes atraumatic Eyes General: appearance normal, both eyes and all related structures Pupils: Equal, round and reactive pupils present EOM: EOMs intact bilaterally Resp Effort & Inspection: normal respiratory effort Neuro General: patient oriented x3 and gait normal Cranial nerves: Yes Equal, round and reactive pupils present Psych Affect: normal affect Coding Level of Care Code Est Pt Level 3 (48542) Diagnoses Elevated liver enzymes R74.8 Hypercholesterolemia E78.00 Assessment & Plan Assessment & Plan (1) Elevated liver enzymes: Code(s): R74.8 - Abnormal levels of other serum enzymes Category: Medical Plan: Mildly elevated liver enzymes. Labs show normal echotexture Likely some borderline nonalcoholic fatty liver disease Encouraged a little more weight loss. Encouraged good hydration Will continue to monitor (2) Hypercholesterolemia: Code(s): E78.00 - Pure hypercholesterolemia, unspecified Category: Medical Plan: LDL cholesterol is above goal of less than 100. His HDL ratios good. Encouraged diet lower in saturated fats and cholesterol Orders: Orders Lipid Panel Today Z00.00 - Encounter for general adult medical examination without abnormal findings Prostate Specific Antigen Scr Today Z12.5 - Encounter for screening for ma lignant neoplasm of prostate TSH reflex Free T4 Today Z00.00 - Encounter for general adult medical examination without abnormal findings UA CC w/rflx Micro + Cult Today Z00.00 - Encounter for general adult medical examination without abnormal findings Hepatitis B,C Profile Today Z11.3 - Encounter for screening for infections with a predominantly sexual mode of transmission Comprehensive [place]. Panel Fast Today Z00.00 - Encounter for general adult medical examination without abnormal findings Complete Blood Count Auto Diff Today Z00.00 - Encounter for general adult medical examination without abnormal findings Microalbumin, Random (w Creat) Today I10 - Essential (primary) hypertension
[2024-10-06 08:51] VITALS: BP 120/80; PULSE 92; RESP 14; TEMP 36.7; O2SAT 97; BMI 26.6
== END 2024-10-06 09:28 | disposition home or self-care (01) ==
LOC: HO.HMCFM 08:45
PROVIDERS: PCP Family Medicine; Visit Provider Family Medicine
DX: R74.8 Abnormal levels of other serum enzymes (principal); E78.00 Pure hypercholesterolemia, unspecified

== ENCOUNTER → 2024-10-06 08:44 | Outpatient (BNVA) | payer OTHER, SELFPAY | PROVIDERS: PCP Family Medicine; Visit Provider Family Medicine | DX: R74.8 Abnormal levels of other serum enzymes (principal); E78.00 Pure hypercholesterolemia, unspecified; I10 Essential (primary) hypertension | CPT/HCPCS: 99212 ==